=== PATIENT | male | born 1985 | race Caucasian/White ===

== ENCOUNTER → 2016-08-16 | Outpatient (CLI) | payer OTHER ==
--- NOTE | 2016-08-16 10:26 | XR ---
EXAM TYPE: LUMBAR SPINE X RAY SERIES COMPARISON: NONE HISTORY: Low back pain TECHNIQUE: 3 views are submitted. FINDINGS: Alignment is anatomic. The pedicles are intact. The transverse processes are intact. There is no s pondylolysis or spondylolisthesis. There is narrowing of the disc space at L4-5 with vacuum disc and hypertrophic spur formation. IMPRESSION: 1. Severe degenerative disc disease L4-L5 with vacuum disc. Recommend follow-up MRI.
== END ==
LOC: RADXRMAIN 10:06
PROVIDERS: ATTEND Family Medicine
DX: M51.36 Other intervertebral disc degeneration, lumbar region (principal)
CPT/HCPCS: 72100

== ENCOUNTER → 2016-12-05 | Outpatient (CLI) | payer OTHER ==
--- NOTE | 2016-12-05 23:19 | MR ---
EXAMINATION TYPE: MR lumbar spine wo con DATE OF EXAM: 12/05/2016 COMPARISON: Lumbar spine x-ray August 16, 2016. HISTORY: Low back pain per order. Numbing and stabbing pain in lower back and left leg x2-3 years per patient. TECHNIQUE: Multiplanar, multisequence imaging of the lumbar spine is performed without IV contrast. FINDINGS: Sagittal images of the lumbar spine show vertebral body heights and alignment to appear sat isfactory. There is disc desiccation with moderate to advanced disc space narrowing, mild anterior sp urring, and vacuum disc phenomenon with increased T1 and T2 signal consistent with Modic type II dege nerative change L4-L5 level. There is disc desiccation with mild disc space narrowing L5-S1 level. R emainder discs demonstrate normal heights and hydration. The conus medullaris is normal in position a nd signal ending at superior L1 level. Axial images show the T12-L1, L1-L2, L2-L3, and L3-L4 levels all to appear within normal limits. Axial images at the L4-L5 level shows disc herniation central on axial image 8 with broad-based left paracentral component inferior to this on axial image 7. There is effacement of the anterior thecal s ac and left lateral recess, but bilateral neural foramina remain patent. There is inferior extrusion component with increased signal posteriorly consistent with annular tear noted on sagittal image 7. S ome mass effect on central left L5 nerve likely is present on axial image 6. Axial images at L5-S1 level show mild facet arthropathy. There is central disc protrusion seen but sp inal canal is preserved. Right-sided neural foramen is patent. There is more eccentric left foraminal disc protrusion seen on sagittal image 3 effacing left L5 nerve. IMPRESSION: Degenerative changes L4-L5 and L5-S1 level as detailed above with inferior disc extrusion L4-L5 level encroaching upon central left L5 nerve and foraminal disc herniation L5-S1 level encroac nikolay on exiting left L5 nerve.
== END | disposition home or self-care (01) ==
LOC: RADMRIMAIN 18:01
PROVIDERS: ATTEND Family Medicine
DX: M51.27 Other intervertebral disc displacement, lumbosacral region (principal); M47.817 Spondylosis without myelopathy or radiculopathy, lumbosacral region
CPT/HCPCS: 72148

== ENCOUNTER 2017-10-24 19:12 | Emergency (ER) | payer OTHER ==
--- NOTE | 2017-10-24 20:21 | ED ---
Skin/Abscess/FB HPI - General Chief complaint: Skin/Abscess/Foreign Body Stated complaint: rash on feet Time Seen by Provider: 10/24/17 20:01 Source: patient, RN notes reviewed Mode of arrival: ambulatory Limitations: no limitations - History of Present Illness Initial comments: This is a 32-year-old male who presents to the emergency department with chief complaint of rash on feet. 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 He states he has to wear full body suit and boots. He states that for the past year he has been having intermittent rashes on bilateral feet. He states that they start as a mild rash and then he develops cracking in his feet. He states that his rash has increased in severity over the past 2 weeks. He states that today he got up to walk and felt his skin crack. He presents to the emergency department requesting a referral to dermatology. He does state that his boss has the same condition and is treated by a access control specialist. Denies recent fevers or chills, chest pain or abdominal pain, shortness of breath, nausea or vomiting, dizziness or headache. - Related Data Home Medications Medication Instructions Recorded Confirmed Fluticasone Nasal [place] [Flonase 1 spray EA NOSTRIL DAILY PRN 01/14/16 01/14/16 Nasal [place]] Loratadine [Claritin] 10 mg PO DAILY PRN 01/14/16 01/14/16 Previous Rx's Medication Instructions Recorded Diazepam [Valium] 5 mg PO TID PRN #15 tab 01/14/16 Naproxen [Naprosyn] 500 mg PO Q12HR #30 tab 01/14/16 Clotrimazole Cream [Lotrimin Cream] 1 applic TOPICAL BID #1 tube 10/24/17 Mupirocin 2% Oint [Bactroban 2% 1 applic TOPICAL TID #1 tube 10/24/17 Oint] Allergies Allergy/AdvReac Type Severity Reaction Status Date / Time propoxyphene napsylate Allergy Confusion Verified 10/24/17 19:25 [From [facility]iel] Review of Systems ROS Statement: Those systems with pertinent positive or pertinent negative responses have been documented in the HPI. ROS Other: All systems not noted in ROS Statement are negative. Past Medical History Past Medical History: Asthma Additional Past Medical History / Comment(s): sinus problems History of Any Multi-Drug Resistant Organisms: None Reported Past Surgical History: Orthopedic Surgery Additional Past Surgical History / Comment(s): oral surgery Past Psychological History: Anxiety, PTSD Smoking Status: Current every day smoker Past Alcohol Use History: Occasional Past Drug Use History: None Reported General Exam - General Exam Comments Initial Comments: General: Awake and alert, well-developed; in no apparent distress. HEENT: Head atraumatic, normocephalic. Pupils are equal, round and reactive to light. Extraocular movements intact. Oropharynx moist without erythema or exudate. Neck: Supple. Normal ROM. Cardiovascular: Regular rate and rhythm. No murmurs, rubs or gallops. Chest symmetrical. Pedal pulses are 2+ equal and palpable bilaterally. Respiratory: Lungs clear to auscultation bilaterally. No wheezes, rales or rhonchi. Normal respiratory effort with no use of accessory muscles. Musculoskeletal: Normal ROM, no tenderness bilateral upper and lower extremities. Ambulating normally. Skin: [place], warm and dry. Bilateral dorsal feet have a coalesced erythematous rash with overlying emaciation/cracking and yellow crusting. Neurological: Alert and oriented x3. CN II-XII grossly intact. Speech is fluent and answers are appropriate. No focal neuro deficits. Psychiatric: Normal mood and affect. No overt signs of depression or anxiety noted. Limitations: no limitations Course Vital Signs 10/24/17 19:21 Temperature 98.6 F Pulse Rate 91 Respiratory 16 Rate Blood Pressure 132/77 O2 Sat by Pulse 96 Oximetry Medical Decision Making - Medical Decision Making This is a 32-year-old male who presents to the emergency department with chief complaint of bilateral foot rash. This rash has been present intermittently for the past one year. Patient works in a very hot environment with molten metal. On physical examination, rash appears to be fungal in nature with an overlying bacterial superinfection. Patient will be started on mupirocin ointment and Lotrimin cream. Directions for use were discussed with patient. He will be provided with contact information for dermatology. Vital signs are stable and patient is in no acute distress. He'll be discharged at this time. This case was discussed with attending physician, Dr. Ruano, who also evaluated the patient. Patient is in agreement with plan and voices understanding. All questions were answered. Disposition Clinical Impression: Fungal skin infection Disposition: HOME SELF-CARE Condition: Good Instructions: Impetigo (ED), Tinea Corporis (ED) Additional Instructions: Please apply the antifungal cream to the surrounding rash and the antibacterial ointment to the cracked areas. Please follow-up with Dr. Burgess. Please follow up with primary care provider within 1-2 days. Return to emergency department if symptoms should worsen or any concerns arise. Prescriptions: Clotrimazole Cream [Lotrimin Cream] 1 applic TOPICAL BID #1 tube Mupirocin 2% Oint [Bactroban 2% Oint] 1 applic TOPICAL TID #1 tube Is patient prescribed a controlled substance at d/c from ED?: No Referrals: Buck Lopez DO [Primary Care Provider] - 1-2 days Margarette Burgess MD [STAFF PHYSICIAN] - 1-2 days Hill Burgess MD [STAFF PHYSICIAN] - 1-2 days Time of Disposition: 20:19
[2017-10-24 20:28] VITALS: BP 144/75; PULSE 78; RESP 18; TEMP 98.8
== END 2017-10-24 20:28 | disposition home or self-care (01) ==
LOC: EC 19:12
DX: B37.2 Candidiasis of skin and nail (principal); J45.909 Unspecified asthma, uncomplicated; F17.200 Nicotine dependence, unspecified, uncomplicated; Z88.5 Allergy status to narcotic agent
CPT/HCPCS: 99282

== ENCOUNTER 2018-02-13 19:36 | Emergency (ER) | payer OTHER ==
[2018-02-13] MEDS ORDERED: KETOROLAC 30 MG/ML 1 ML VIAL IVP STA (20:11)
[2018-02-13] MEDS ORDERED: SODIUM CHLORIDE 0.9% 1,000 ML IV STA (20:11)
[2018-02-13] MEDS ORDERED: METOCLOPRAMIDE 5 MG/ML 2 ML VIAL IVP STA (20:12)
[2018-02-13] MEDS ORDERED: diphenhydrAMINE 50 MG/ML 1 ML VIAL IVP STA (20:12)
--- NOTE | 2018-02-13 20:14 | ED ---
General Adult HPI - General Chief complaint: Headache Stated complaint: Vomiting Source: patient Mode of arrival: ambulatory Limitations: no limitations - History of Present Illness Initial comments: Dictation was produced using Bizo dictation software. please excuse any grammatical, word or spelling errors. Chief Complaint: 32-year-old male without any past medical history presents with headache. History of Present Illness: Patient states his headache began yesterday. He does complain of some neck stiffness to his bilateral trapezius. He has been under a lot of stress today because of recent divorce and that'll with his custody of his children. Patient states he was at work when the symptoms started. Denies any past medical history of headaches. He states pain is mild. Denies any ataxia or neurologic deficits. No numbness to paresthesias or weakness to any part of the body. No vision changes. The ROS documented in this emergency department record has been reviewed and confirmed by me. Those systems with pertinent positive or negative responses have been documented in the HPI. All other systems are other negative and/or noncontributory. - Related Data Previous Rx's Medication Instructions Recorded Naproxen [Naprosyn] 500 mg PO Q12HR PRN #12 tab 02/13/18 Allergies Allergy/AdvReac Type Severity Reaction Status Date / Time propoxyphene napsylate Allergy Confusion Verified 02/13/18 19:43 [From Maciel] Review of Systems ROS Statement: Those systems with pertinent positive or pertinent negative responses have been documented in the HPI. ROS Other: All systems not noted in ROS Statement are negative. Past Medical History Past Medical History: Asthma Additional Past Medical History / Comment(s): sinus problems History of Any Multi-Drug Resistant Organisms: None Reported Past Surgical History: Orthopedic Surgery Additional Past Surgical History / Comment(s): oral surgery Past Psychological History: Anxiety, PTSD Smoking Status: Current every day smoker Past Alcohol Use History: Occasional Past Drug Use History: None Reported General Exam - General Exam Comments Initial Comments: PHYSICAL EXAM: General Impression: Alert and oriented x3, not in acute distress HEENT: Normocephalic atraumatic, extra-ocular movements intact, pupils equal and reactive to light bilaterally, mucous membranes moist. Cardiovascular: Heart regular rate and rhythm, S1&S2 audible, no murmurs, rubs or gallops Chest: Lungs clear to auscultation bilaterally, no rhonchi, no wheeze, no rales Abdomen: Bowel sounds present, abdomen soft, non-tender, non-distended, no organomegaly Musculoskeletal: Pulses present and equal in all extremities, no peripheral edema Motor: Power 5/5 bilaterally, no focal deficits noted Neurological: CN II-XII grossly intact, no focal motor or sensory deficits noted Skin: Intact with no visualized rashes Psych: Normal affect and mood Limitations: no limitations Course Vital Signs 02/13/18 02/13/18 19:41 20:56 Temperature 98.3 F Pulse Rate 90 75 Respiratory 20 18 Rate Blood Pressure 123/81 117/61 O2 Sat by Pulse 99 97 Oximetry Medical Decision Making - Medical Decision Making ED course: 32-year-old male with clinical presentation consistent with tension headache. Vital signs upon arrival are within acceptable limits. Patient treated with headache cocktail. No neuro deficits noted on physical examination. Patient given headache cocktail and reevaluated. Patient states that his symptoms are much improved. He is told to follow-up with his primary care physician upon discharge. Discussed with patient that his symptoms likely reflect tension headache. No indication for CT imaging or extensive laboratory evaluation at this time. Disposition Clinical Impression: Headache Disposition: HOME SELF-CARE Condition: Good Instructions: Acute Headache (ED) Prescriptions: Naproxen [Naprosyn] 500 mg PO Q12HR PRN #12 tab PRN Reason: Pain Is patient prescribed a controlled substance at d/c from ED?: No Referrals: Buck Lopez DO [Primary Care Provider] - 1-2 days Time of Disposition: 21:06
[2018-02-13 20:58] VITALS: RESP 18
[2018-02-13 22:08] VITALS: BP 101/61; PULSE 78; TEMP 98.2
== END 2018-02-13 22:08 | disposition home or self-care (01) ==
LOC: EC 19:36
DX: G44.209 Tension-type headache, unspecified, not intractable (principal); R11.10 Vomiting, unspecified; F17.200 Nicotine dependence, unspecified, uncomplicated; Z88.6 Allergy status to analgesic agent
CPT/HCPCS: 99283; 96374; 96375 ×2; 96361; J1200; J2765; J1885

== ENCOUNTER 2018-04-01 19:58 | Emergency (ER) | payer OTHER ==
[2018-04-01] MEDS ORDERED: IPRATROPIUM-ALBUTEROL 3 ML NEB INHALATION STA (20:21)
[2018-04-01] MEDS ORDERED: FAMOTIDINE 20 MG/2 ML VIAL IV STA (20:21)
[2018-04-01] MEDS ORDERED: SODIUM CHLORIDE 0.9% 500 ML 500 ML IV STA (20:21)
--- NOTE | 2018-04-01 20:31 | ED ---
Chest Pain HPI - General Chief Complaint: Chest Pain Stated Complaint: chest & lung pain Time Seen by Provider: 04/01/18 20:13 Source: patient Mode of arrival: ambulatory Limitations: no limitations - History of Present Illness Initial Comments: 32-year-old male patient presented to the emergency department today for evaluation of intermittent chest pain over the course the day today. Patient describes as a burning chest pain starts in the middle and radiates outward to the left and right. Patient states this started earlier after taking a drink of pop. States he does feel short of breath with this. He denies any sweats, nausea, or vomiting. Patient denies any history of similar symptoms. Patient states he has been coughing denies any sputum production. Denies any fevers or chills with this. Denies any history of acid reflux. Denies any recent travel , leg pain, or leg swelling. Patient denies any recent rash, abdominal pain, diarrhea, constipation, back pain, numbness, tingling, dizziness, weakness, hematuria, dysuria, urinary urgency, urinary frequency, headache, visual changes , or any other complaints. - Related Data Previous Rx's Medication Instructions Recorded Albuterol Sulfate [Proair Hfa] 1 - 2 puff INHALATION Q6HR PRN #1 04/01/18 inhaler Famotidine [Pepcid] 20 mg PO DAILY #20 tablet 04/01/18 Allergies Allergy/AdvReac Type Severity Reaction Status Date / Time propoxyphene napsylate Allergy Confusion Verified 04/01/18 21:14 [From Maciel] Review of Systems ROS Statement: Those systems with pertinent positive or pertinent negative responses have been documented in the HPI. ROS Other: All systems not noted in ROS Statement are negative. EKG Findings - EKG Comments: EKG Findings:: EKG obtained at 2010 shows normal sinus rhythm with sinus arrhythmia. Ventricular rate is 72, VA interval 160, QRS duration 98, QT 374, QTC 409. No evidence of ST elevation or depression. Past Medical History Past Medical History: Asthma Additional Past Medical History / Comment(s): sinus problems History of Any Multi-Drug Resistant Organisms: None Reported Past Surgical History: Orthopedic Surgery Additional Past Surgical History / Comment(s): oral surgery Past Psychological History: Anxiety, PTSD Smoking Status: Current every day smoker Past Alcohol Use History: Occasional Past Drug Use History: None Reported General Exam Limitations: no limitations General appearance: alert, in no apparent distress, other (This is a well- developed, well-nourished adult male patient in no acute distress. Vital signs upon presentation are temperature 98.5F, pulse 77, respirations 18, blood pressure 128/77, pulse ox 99% on room air.) Eye exam: Present: normal appearance, PERRL, EOMI. Absent: scleral icterus, conjunctival injection, periorbital swelling ENT exam: Present: normal exam, normal oropharynx, mucous membranes moist Respiratory exam: Present: wheezes (Scattered expiratory wheezes throughout all posterior lung boone). Absent: normal lung sounds bilaterally, respiratory distress, rales, rhonchi, stridor Cardiovascular Exam: Present: regular rate, normal rhythm, normal heart sounds. Absent: systolic murmur, diastolic murmur, rubs, gallop, clicks GI/Abdominal exam: Present: soft, normal bowel sounds. Absent: distended, tenderness, guarding, rebound, rigid Neurological exam: Present: alert, oriented X3, CN II-XII intact Psychiatric exam: Present: normal affect, normal mood Skin exam: Present: warm, dry, intact, normal color. Absent: rash Course Vital Signs 04/01/18 04/01/18 04/01/18 20:02 21:01 22:06 Temperature 98.5 F Pulse Rate 77 69 58 L Respiratory 18 18 Rate Blood Pressure 128/77 124/77 O2 Sat by Pulse 99 97 Oximetry 04/01/18 22:15 Temperature Pulse Rate 62 Respiratory Rate Blood Pressure O2 Sat by Pulse Oximetry Chest Pain MDM - [facility] RADIOLOGY:Two-view x-ray of the chest is obtained. Report was reviewed in its entirety. Impression by Dr. Lujan shows no acute process. MDM: 32-year-old male patient presented to the emergency department today for evaluation of intermittent burning chest pain after taking a large drink a pop earlier today. Patient also reported some shortness of breath and dizziness with this. Physical examination was relatively unremarkable. Labs reviewed and were unremarkable. Troponin negative. EKG showed normal sinus rhythm. Did discuss findings and results with the patient. We did discuss that this could be related to the esophageal spasm however patient does have wheezing throughout his posterior lung boone. Patient is a smoker. Did discuss risk of developing COPD. He'll be given a Pro Air inhaler. He is instructed to follow-up with his primary care physician for recheck in 1-2 days. Return parameters discussed in detail. They verbalize understanding and agree with this plan. Disposition Clinical Impression: Chest pain, Wheezing Disposition: HOME SELF-CARE Condition: Good Instructions: Chest Pain (ED), Wheezing (ED) Additional Instructions: Take medications as directed. Follow-up with your primary care physician for recheck in 1-2 days. Return here immediately for any new, worsening, or concerning symptoms. Prescriptions: Albuterol Sulfate [Proair Hfa] 1 - 2 puff INHALATION Q6HR PRN #1 inhaler PRN Reason: Shortness Of Breath Famotidine [Pepcid] 20 mg PO DAILY #20 tablet Is patient prescribed a controlled substance at d/c from ED?: No Referrals: Buck Lopez DO [Primary Care Provider] - 1-2 days Time of Disposition: 22:39
[2018-04-01 20:37] LABS: Basophils % (A) 1 %; Eosinophils # (A) 0.3 k/uL (0-0.7); Eosinophils % (A) 4 %; HCT 43.3 % (39.0-53.0); HGB 15.1 gm/dL (13.0-17.5); Lymphocytes # (A) 2.1 k/uL (1.0-4.8); Lymphocytes % (A) 36 %; MCHC 34.9 g/dL (31.0-37.0); MCV 88.7 fL (80.0-100.0); Mean Platelet Volume 7.7; Monocytes # (A) 0.5 k/uL (0-1.0); Monocytes % (A) 8 %; Neutrophils # (A) 2.9 k/uL (1.3-7.7); Neutrophils % (A) 49 %; Platelet Count 176 k/uL (150-450); RBC 4.88 m/uL (4.30-5.90); WBC 5.9 k/uL (3.8-10.6)
[2018-04-01 20:50] LABS: Creatine Kinase 141 U/L (55-170)
[2018-04-01 20:53] LABS: ALT 24 U/L (21-72); AST 31 U/L (17-59); Albumin 3.9 g/dL (3.5-5.0); Alkaline Phosphatase 41 U/L (38-126); Anion Gap 9 mmol/L; Blood Urea Nitrogen 12 mg/dL (9-20); Calcium 9.3 mg/dL (8.4-10.2); Carbon Dioxide 22 mmol/L (22-30); Chloride 108 mmol/L (98-107); Glucose 103 mg/dL (74-99); Magnesium 1.9 mg/dL (1.6-2.3); Potassium 4.1 mmol/L (3.5-5.1); Sodium 139 mmol/L (137-145); Total Bilirubin 0.9 mg/dL (0.2-1.3); Total Protein 7.1 g/dL (6.3-8.2)
[2018-04-01 21:03] LABS: Creatine Kinase MB 0.6 ng/mL (0.0-2.4); Troponin I <0.012 ng/mL (0.000-0.034)
[2018-04-01 21:14] LABS: INR 1.1 (<1.2); Partial Thromboplastin Time 23.8 sec (22.0-30.0); Prothrombin Time 10.4 sec (9.0-12.0)
--- NOTE | 2018-04-01 21:56 | XR ---
EXAMINATION: XR chest 2V DATE AND TIME: 04/01/2018 9:44 PM CLINICAL INDICATION: Chest Pain TECHNIQUE: PA and lateral COMPARISON: 01/05/2016 FINDINGS: The lungs are clear. The pleural spaces are negative. The cardiac silhouette is not enlarged. The remainder of the mediastinal silhouette is unremarkable. The skeletal structures and soft tissues are negative for acute findings. IMPRESSION: NO ACUTE PROCESS.
[2018-04-01 22:56] VITALS: BP 113/63; PULSE 57; RESP 18; TEMP 99
== END 2018-04-01 22:49 | disposition home or self-care (01) ==
LOC: EC 19:58
DX: R07.9 Chest pain, unspecified (principal); R06.2 Wheezing; R06.02 Shortness of breath; R42 Dizziness and giddiness; R05 Cough; F17.200 Nicotine dependence, unspecified, uncomplicated; Z88.5 Allergy status to narcotic agent
CPT/HCPCS: 36415; 71046; 80053; 82550; 82553; 83735; 84484; 85025; 85610; 85730; 93005; 94640; 96361; 96374; 99285

== ENCOUNTER → 2018-05-24 | Outpatient (CLI) | payer OTHER ==
--- NOTE | 2018-05-24 16:46 | XR ---
EXAMINATION TYPE: XR lumbar spine 2 or 3V DATE OF EXAM: 05/24/2018 COMPARISON: 08/16/2016 HISTORY: Back pain TECHNIQUE: 3 views FINDINGS: The lumbar vertebra have normal alignment. There is degenerative disc space narrowing at L4 -5 with spur formation. Posterior elements are intact. Sacroiliac joints appear normal. IMPRESSION: Spondylotic changes at L4-5. No fracture. There is slight progression of disc space narro wing compared to old exam.
--- NOTE | 2018-05-24 16:48 | XR ---
EXAMINATION TYPE: XR thoracic spine complete DATE OF EXAM: 05/24/2018 COMPARISON: 01/14/2016 HISTORY: Back pain TECHNIQUE: 3 views FINDINGS: Vertebra have fairly normal spacing. Posterior elements are intact. There is no compression fracture. There is no paraspinal mass. Posterior elements appear intact. IMPRESSION: Negative thoracic spine exam. No change.
== END | disposition home or self-care (01) ==
LOC: RADXRMAIN 16:22
PROVIDERS: ATTEND Emergency Medicine
DX: M48.061 Spinal stenosis, lumbar region without neurogenic claudication (principal); M47.816 Spondylosis without myelopathy or radiculopathy, lumbar region; S33.5XXA Sprain of ligaments of lumbar spine, initial encounter; S23.3XXA Sprain of ligaments of thoracic spine, initial encounter
CPT/HCPCS: 72072; 72100

== ENCOUNTER → 2018-06-06 | Outpatient (CLI) | payer OTHER ==
--- NOTE | 2018-06-06 14:44 | MR ---
EXAMINATION TYPE: MR lumbar spine wo con DATE OF EXAM: 06/06/2018 COMPARISON: MRI lumbar spine December 05, 2016. Lumbar spine x-ray May 24, 2018 HISTORY: Sprain of ligaments of lumbar spine TECHNIQUE: Multiplanar, multisequence imaging of the lumbar spine is performed without IV contrast. FINDINGS: Sagittal images of the lumbar spine show vertebral body heights to remain satisfactory. Lum bar spine is slightly more straightened on current study. There is disc desiccation with moderate to advanced disc space narrowing, mild anterior spurring, and vacuum disc phenomenon with Modic type II degenerative change L4-L5 level redemonstrated. There is disc desiccation with mild to moderate disc space narrowing L5-S1 level redemonstrated. Remainder discs demonstrate normal heights and hydration. Posterior disc herniations are redemonstrated L4-L5 and L5-S1 levels on sagittal images The conus me dullaris remains normal in position and signal ending at T12-L1 disc space level. Axial images show the T12-L1, L1-L2, L2-L3, and L3-L4 levels all to remain within normal limits. Axial images at the L4-L5 level shows moderate to severe disc bulge with left paracentral disc protru vishal component effacing anterior thecal sac on axial image 7 and causing mild right greater than left bilateral inferior neural foraminal narrowing. No significant change from prior. There is inferior e xtrusion component redemonstrated encroaching near central left L5 nerve similar to prior axial image 6. Axial images at L5-S1 level show mild facet arthropathy bilaterally. There is central disc protrusion seen but spinal canal is preserved. Right-sided neural foramen is patent. There is more eccentric le ft foraminal disc protrusion seen on sagittal image 3 and axial image 3 effacing left L5 nerve simila r to prior. Paraspinal muscle bulk is maintained. IMPRESSION: Redemonstration of degenerative changes L4-L5 and L5-S1 level as detailed above with encr oachment left L5 nerve was again suspected at both levels. No significant change or progression from prior study.
== END ==
LOC: RADMRIMAIN 13:09
PROVIDERS: ATTEND Emergency Medicine
DX: M48.061 Spinal stenosis, lumbar region without neurogenic claudication (principal); M51.27 Other intervertebral disc displacement, lumbosacral region; M47.816 Spondylosis without myelopathy or radiculopathy, lumbar region; M46.97 Unspecified inflammatory spondylopathy, lumbosacral region
CPT/HCPCS: 72148

== ENCOUNTER → 2020-09-10 | Outpatient (CLI) | payer OTHER | END | disposition home or self-care (01) | LOC: LABWHC1 17:07 | PROVIDERS: ATTEND Family Medicine | DX: J02.9 Acute pharyngitis, unspecified (principal); R06.02 Shortness of breath; R53.83 Other fatigue; R05 Cough; R09.81 Nasal congestion; Z20.822 Contact with and (suspected) exposure to COVID-19 | CPT/HCPCS: U0003; C9803 ==

== ENCOUNTER → 2020-11-02 | Outpatient (CLI) | payer OTHER | END | disposition home or self-care (01) | LOC: LABWHC1 08:48 | PROVIDERS: ATTEND Nurse Practitioner | DX: U07.1 COVID-19 (principal) | CPT/HCPCS: U0003; C9803; U0005 ==

== ENCOUNTER 2021-02-01 17:28 | Emergency (ER) | payer OTHER ==
[2021-02-01 18:37] VITALS: RESP 18; TEMP 98.6
--- NOTE | 2021-02-01 18:39 | ED ---
General Adult HPI <Bárbara Domínguez - Last Filed: 02/01/21 18:33> <Edgar Fang - Last Filed: 02/01/21 22:11> - General Chief complaint: Abdominal Pain Stated complaint: Abdominal Pain/Abnormal Stool Time Seen by Provider: 02/01/21 18:33 - History of Present Illness Initial comments: Patient is a 35-year-old male presenting to the emergency Department with complaints of right-sided abdominal pain has been increasing over the past 1-2 weeks. He states over the past 3 weeks has been having some generalized discomfort, changes in his stool pattern. He states he's been having hernandez- colored stool which has been very thin and narrow, it is soft. States the pain is mostly in his right-sided abdomen, upper abdomen. He states the pain over the past few days has been increasing, on his way home from work today, he states he was doubled over, 1010 pain. He denies any radiation towards the back. Denies any chest pain or shortness of breath. He denies any fevers. He states he is an occasional drinker, he does admit to vape and marijuana use. He denies any abdominal surgeries. He has been having some intermittent nausea as well, no vomiting. No dysuria. He has no further complaints at this time. (Bárbara Domínguez) - Related Data Home Medications Medication Instructions Recorded Confirmed Ergocalciferol [Vitamin D2 (1250 1,250 mcg PO Q28D 02/01/21 02/01/21 Mcg = 43833 Iu)] Ibuprofen [Motrin] 800 mg PO DAILY PRN 02/01/21 02/01/21 Allergies Allergy/AdvReac Type Severity Reaction Status Date / Time propoxyphene napsylate Allergy Confusion Verified 02/01/21 21:14 [From Maciel] Review of Systems ROS Other: All systems not noted in ROS Statement are negative. <Bárbara Domínguez - Last Filed: 02/01/21 18:33> ROS Other: All systems not noted in ROS Statement are negative. <Edgar Fang - Last Filed: 02/01/21 22:11> ROS Statement: Those systems with pertinent positive or pertinent negative responses have been documented in the HPI. Past Medical History Past Medical History: Asthma Additional Past Medical History / Comment(s): sinus problems History of Any Multi-Drug Resistant Organisms: None Reported Past Surgical History: Orthopedic Surgery Additional Past Surgical History / Comment(s): oral surgery Past Psychological History: Anxiety, PTSD Past Alcohol Use History: Occasional Past Drug Use History: None Reported <Bárbara Domínguez - Last Filed: 02/01/21 18:33> General Exam Limitations: no limitations, language barrier General appearance: alert, in no apparent distress Head exam: Present: atraumatic, normocephalic <Bárbara Domínguez - Last Filed: 02/01/21 18:33> Limitations: no limitations General appearance: alert, in no apparent distress Head exam: Present: atraumatic, normocephalic Eye exam: Present: normal appearance Pupils: Present: normal accommodation ENT exam: Present: normal exam, normal oropharynx, mucous membranes moist Neck exam: Present: normal inspection, full ROM. Absent: tenderness, lymphadeno josi Respiratory exam: Present: normal lung sounds bilaterally. Absent: respiratory distress, wheezes, rales, rhonchi, stridor Cardiovascular Exam: Present: regular rate, normal rhythm, normal heart sounds. Absent: systolic murmur GI/Abdominal exam: Present: soft, tenderness (Right-sided abdominal tenderness). Absent: distended, guarding, rebound, rigid Extremities exam: Present: normal inspection, full ROM, normal capillary refill. Absent: tenderness, pedal edema, joint swelling Back exam: Present: normal inspection, full ROM. Absent: tenderness Neurological exam: Present: alert, oriented X3 Psychiatric exam: Present: normal affect, normal mood Skin exam: Present: warm, dry, intact, normal color <Edgar Fang - Last Filed: 02/01/21 22:11> Course Vital Signs 02/01/21 18:33 Temperature 98.6 F Pulse Rate 67 Respiratory 18 Rate Blood Pressure 129/87 O2 Sat by Pulse 100 Oximetry Medical Decision Making - Lab Data Result diagrams: 02/01/21 18:40 02/01/21 18:40 <Edgar Fang - Last Filed: 02/01/21 22:11> - Medical Decision Making 35-year-old male presents emergency father chief complaint of abdominal pain. I personally evaluated the patient and he did have some right-sided abdominal tenderness. Negative McBurney point centers. Negative Maynard sign. No CVA tenderness. He did not appear to be significant discomfort. He was playing on his phone when upright for his evaluation. Laboratory work is unremarkable. Considering his weight loss, there is a concern for possible neoplastic disease. For this reason, CT was obtained which showed no acute findings of the abdomen and pelvis. Patient was advised to follow with primary care physician and a GI specialist. Strict return parameters were thoroughly discussed the patient is standing and agreeable. Case discussed with Dr. Villanueva. (Edgar Fang) - Lab Data Lab Results 02/01/21 02/01/21 02/01/21 Range/Units 18:40 18:40 18:40 WBC 7.2 (3.8-10.6) k/uL RBC 4.75 (4.30-5.90) m/uL Hgb 15.0 (13.0-17.5) gm/dL Hct 42.8 (39.0-53.0) % MCV 90.2 (80.0-100.0) fL MCH 31.5 (25.0-35.0) pg MCHC 35.0 (31.0-37.0) g/dL RDW 13.6 (11.5-15.5) % Plt Count 222 (150-450) k/uL MPV 8.3 Neutrophils % 62 % Lymphocytes % 29 % Monocytes % 5 % Eosinophils % 3 % Basophils % 0 % Neutrophils # 4.5 (1.3-7.7) k/uL Lymphocytes # 2.1 (1.0-4.8) k/uL Monocytes # 0.3 (0-1.0) k/uL Eosinophils # 0.2 (0-0.7) k/uL Basophils # 0.0 (0-0.2) k/uL PT 10.6 (9.0-12.0) sec INR 1.0 (<1.2) APTT 24.0 (22.0-30.0) sec Sodium (137-145) mmol/L Potassium (3.5-5.1) mmol/L Chloride (98-107) mmol/L Carbon Dioxide (22-30) mmol/L Anion Gap mmol/L BUN (9-20) mg/dL Creatinine (0.66-1.25) mg/dL Est GFR (CKD-EPI)AfAm (>60 ml/min/1.73 sqM) Est GFR (CKD-EPI)NonAf (>60 ml/min/1.73 sqM) Glucose (74-99) mg/dL Plasma Lactic Acid Сергей (0.7-2.0) mmol/L Calcium (8.4-10.2) mg/dL Total Bilirubin (0.2-1.3) mg/dL AST (17-59) U/L ALT (4-49) U/L Alkaline Phosphatase (38-126) U/L Total Protein (6.3-8.2) g/dL Albumin (3.5-5.0) g/dL Amylase (30-110) U/L Lipase (23-300) U/L Urine Color Yellow Urine Appearance Clear (Clear) Urine pH 7.0 (5.0-8.0) Ur Specific Edison 1.023 (1.001-1.035) Urine Protein Negative (Negative) Urine Glucose (UA) Negative (Negative) Urine Ketones Negative (Negative) Urine Blood Negative (Negative) Urine Nitrite Negative (Negative) Urine Bilirubin Negative (Negative) Urine Urobilinogen <2.0 (<2.0) mg/dL Ur Leukocyte Esterase Negative (Negative) 02/01/21 02/01/21 Range/Units 18:40 18:40 WBC (3.8-10.6) k/uL RBC (4.30-5.90) m/uL Hgb (13.0-17.5) gm/dL Hct (39.0-53.0) % MCV (80.0-100.0) fL MCH (25.0-35.0) pg MCHC (31.0-37.0) g/dL RDW (11.5-15.5) % Plt Count (150-450) k/uL MPV Neutrophils % % Lymphocytes % % Monocytes % % Eosinophils % % Basophils % % Neutrophils # (1.3-7.7) k/uL Lymphocytes # (1.0-4.8) k/uL Monocytes # (0-1.0) k/uL Eosinophils # (0-0.7) k/uL Basophils # (0-0.2) k/uL PT (9.0-12.0) sec INR (<1.2) APTT (22.0-30.0) sec Sodium 139 (137-145) mmol/L Potassium 4.1 (3.5-5.1) mmol/L Chloride 104 (98-107) mmol/L Carbon Dioxide 25 (22-30) mmol/L Anion Gap 10 mmol/L BUN 16 (9-20) mg/dL Creatinine 0.88 (0.66-1.25) mg/dL Est GFR (CKD-EPI)AfAm >90 (>60 ml/min/1.73 sqM) Est GFR (CKD-EPI)NonAf >90 (>60 ml/min/1.73 sqM) Glucose 96 (74-99) mg/dL Plasma Lactic Acid Сергей 0.6 L (0.7-2.0) mmol/L Calcium 9.9 (8.4-10.2) mg/dL Total Bilirubin 0.7 (0.2-1.3) mg/dL AST 25 (17-59) U/L ALT 17 (4-49) U/L Alkaline Phosphatase 43 (38-126) U/L Total Protein 7.4 (6.3-8.2) g/dL Albumin 4.8 (3.5-5.0) g/dL Amylase 58 (30-110) U/L Lipase 141 (23-300) U/L Urine Color Urine Appearance (Clear) Urine pH (5.0-8.0) Ur Specific Edison (1.001-1.035) Urine Protein (Negative) Urine Glucose (UA) (Negative) Urine Ketones (Negative) Urine Blood (Negative) Urine Nitrite (Negative) Urine Bilirubin (Negative) Urine Urobilinogen (<2.0) mg/dL Ur Leukocyte Esterase (Negative) Disposition <Bárbara Domínguez - Last Filed: 02/01/21 18:33> Is patient prescribed a controlled substance at d/c from ED?: No Time of Disposition: 22:11 <Edgar Fang - Last Filed: 02/01/21 22:11> Clinical Impression: Abdominal pain Disposition: HOME SELF-CARE Condition: Stable Instructions (If sedation given, give patient instructions): Abdominal Pain (E D) Additional Instructions: Follow-up with a GI specialist. Return to emergency department if symptoms worsen. Referrals: Vijay Maldonado MD [Primary Care Provider] - 1-2 days
[2021-02-01 19:06] LABS: Basophils % (A) 0 %; Eosinophils # (A) 0.2 k/uL (0-0.7); Eosinophils % (A) 3 %; HCT 42.8 % (39.0-53.0); Lymphocytes # (A) 2.1 k/uL (1.0-4.8); Lymphocytes % (A) 29 %; MCH 31.5 pg (25.0-35.0); MCV 90.2 fL (80.0-100.0); Mean Platelet Volume 8.3; Monocytes # (A) 0.3 k/uL (0-1.0); Monocytes % (A) 5 %; Neutrophils # (A) 4.5 k/uL (1.3-7.7); Neutrophils % (A) 62 %; Platelet Count 222 k/uL (150-450); RBC 4.75 m/uL (4.30-5.90); RDW 13.6 % (11.5-15.5); WBC 7.2 k/uL (3.8-10.6)
[2021-02-01 19:10] LABS: ALT 17 U/L (4-49); AST 25 U/L (17-59); African American GFR (CKD) >90 (>60 ml/min/1.73 sqM); Albumin 4.8 g/dL (3.5-5.0); Alkaline Phosphatase 43 U/L (38-126); Amylase 58 U/L (30-110); Anion Gap 10 mmol/L; Blood Urea Nitrogen 16 mg/dL (9-20); Calcium 9.9 mg/dL (8.4-10.2); Carbon Dioxide 25 mmol/L (22-30); Chloride 104 mmol/L (98-107); Glucose 96 mg/dL (74-99); Lipase 141 U/L (23-300); Non-African American GFR(CKD) >90 (>60 ml/min/1.73 sqM); Potassium 4.1 mmol/L (3.5-5.1); Sodium 139 mmol/L (137-145); Total Bilirubin 0.7 mg/dL (0.2-1.3); Total Protein 7.4 g/dL (6.3-8.2)
[2021-02-01 19:23] LABS: Prothrombin Time 10.6 sec (9.0-12.0)
[2021-02-01 19:24] LABS: Appearance,Urine Clear (Clear); Bilirubin,Urine Negative (Negative); Blood,Urine Negative (Negative); Color,Urine Yellow; Glucose,Urine (UA) Negative (Negative); Ketones,Urine Negative (Negative); Leukocyte Esterase,Urine Negative (Negative); Nitrite,Urine Negative (Negative); Protein,Urine Negative (Negative); Specific Gravity,Urine 1.023 (1.001-1.035); Urobilinogen,Urine <2.0 mg/dL (<2.0)
--- NOTE | 2021-02-01 21:26 | CT ---
EXAMINATION TYPE: CT abdomen pelvis w con DATE OF EXAM: 02/01/2021 COMPARISON: None HISTORY: abdominal pain, weight loss, abnormal BMs CT DLP: 1085.6 mGycm Automated exposure control for dose reduction was used. CONTRAST: Performed with IV Contrast, patient injected with 100 mL of Isovue 300. Lung bases are clear. There is no pleural effusion. Heart size is normal. There is no pericardial eff usion. Liver spleen stomach pancreas gallbladder appear normal. The bile ducts are not dilated. There is no adrenal mass. Kidneys show satisfactory contrast opacification. There is no hydronephrosi s. Ureters are not dilated. Delayed images show normal renal excretion. There is no retroperitoneal a denopathy. Bladder distends smoothly. There is no inguinal hernia. There is no free fluid in the pelv is. There is no mesenteric edema. There is no ascites or free air. Appendix is lateral and appears normal . There is no sign of a bowel obstruction. Lumbar vertebra have normal alignment. There is narrowing at L4-5 disc space. There is vacuum disc at L4-5. There is no compression fracture. There is posterior endplate spur formation at L4-5. The bony pelvis is intact. The hip joints are intact. IMPRESSION: Normal appendix. No sign of acute abdomen and pelvis. 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
[2021-02-01 22:49] VITALS: BP 112/70; PULSE 60
== END 2021-02-01 22:49 | disposition home or self-care (01) ==
LOC: EC 17:28
DX: R10.11 Right upper quadrant pain (principal); J45.909 Unspecified asthma, uncomplicated; F41.9 Anxiety disorder, unspecified; F43.12 Post-traumatic stress disorder, chronic; R63.4 Abnormal weight loss; Z88.5 Allergy status to narcotic agent
CPT/HCPCS: 99284 ×2; 36415; 80053; 82150; 83605; 83690; 85025; 85610; 85730; 81003; 74177; Q9967

== ENCOUNTER 2021-02-11 09:44 | Emergency (ER) | payer OTHER ==
[2021-02-11 09:52] VITALS: RESP 18; TEMP 98
[2021-02-11] MEDS ORDERED: MECLIZINE 12.5 MG TAB PO STA (10:11)
--- NOTE | 2021-02-11 11:13 | ED ---
Dizziness HPI - General Chief Complaint: Dizziness Stated Complaint: loss of balance, shakiness Time Seen by Provider: 02/11/21 09:53 Source: patient Mode of arrival: ambulatory Limitations: no limitations - History of Present Illness Initial Comments: 35-year-old male presenting to the emergency department with a chief complaint of dizziness where the room was spinning around him since day. Patient reports it began gradually and seems to worse whenever he is laying down. However, he denies any associated lightheadedness or any syncopal episodes. Denies presence history of vertigo. He denies any visual changes, one-sided weakness or paresthesias. He does report a sensation of fullness in bilateral ears. He does have seasonal ALLERGIES. However, he denies any changes to his hearing, discharge from the ears, fevers, chills. - Related Data Home Medications Medication Instructions Recorded Confirmed Ergocalciferol [Vitamin D2 (1250 1,250 mcg PO Q30D 02/01/21 02/11/21 Mcg = 47804 Iu)] Ibuprofen [Motrin] 800 mg PO Q6H PRN 02/01/21 02/11/21 Allergies Allergy/AdvReac Type Severity Reaction Status Date / Time propoxyphene napsylate Allergy Confusion Verified 02/11/21 10:29 [From Maciel] Review of Systems ROS Statement: Those systems with pertinent positive or pertinent negative responses have been documented in the HPI. ROS Other: All systems not noted in ROS Statement are negative. Past Medical History Past Medical History: Asthma Additional Past Medical History / Comment(s): sinus problems History of Any Multi-Drug Resistant Organisms: None Reported Past Surgical History: Orthopedic Surgery Additional Past Surgical History / Comment(s): oral surgery Past Psychological History: Anxiety, PTSD Smoking Status: Vaper Past Alcohol Use History: Occasional Past Drug Use History: Marijuana General Exam Limitations: no limitations General appearance: alert, in no apparent distress Head exam: Present: atraumatic, normocephalic, normal inspection Eye exam: Present: normal appearance, PERRL, EOMI Pupils: Present: normal accommodation ENT exam: Present: normal exam, normal oropharynx, mucous membranes moist, TM's normal bilaterally (Fluid noted behind the lateral tympanic membranes), normal external ear exam Neck exam: Present: normal inspection, full ROM. Absent: tenderness Respiratory exam: Present: normal lung sounds bilaterally. Absent: respiratory distress, rhonchi, chest wall tenderness Cardiovascular Exam: Present: regular rate, normal rhythm, normal heart sounds. Absent: systolic murmur Extremities exam: Present: normal inspection, full ROM. Absent: tenderness Back exam: Present: normal inspection, full ROM. Absent: tenderness Neurological exam: Present: alert, oriented X3 Psychiatric exam: Present: normal affect, normal mood Skin exam: Present: warm, dry, intact, normal color Course Vital Signs 02/11/21 02/11/21 09:50 11:31 Temperature 98 F Pulse Rate 72 60 Respiratory 18 18 Rate Blood Pressure 151/76 123/89 O2 Sat by Pulse 99 100 Oximetry EKG Findings - EKG Comments: EKG Findings:: Sinus bradycardia. Ventricular rate 56,. 154, QRS 90, QTC 378. Medical Decision Making - Medical Decision Making 35-year-old male presents emergency department with a chief complaint of dizziness. On physical examination, no focal neural deficits. Richard-Hallpike maneuver positive. I gave the patient some Antivert which helped improve his symptoms. EKG showed no acute findings. Advised the patient to perform the Crystal maneuver at home. Advised him to follow with his primary care physician. Return parameters were thoroughly discussed the patient is understanding agreeable. Case discussed with physician. Disposition Clinical Impression: Dizziness Disposition: HOME SELF-CARE Condition: Stable Instructions (If sedation given, give patient instructions): Dizziness (ED) Additional Instructions: Please return to the Emergency Department if symptoms worsen or any other concerns. Is patient prescribed a controlled substance at d/c from ED?: No Referrals: Vijay Maldonado MD [Primary Care Provider] - 1-2 days Time of Disposition: 11:32
[2021-02-11 11:32] VITALS: BP 123/89; PULSE 60
== END 2021-02-11 11:50 | disposition home or self-care (01) ==
LOC: EC 09:44
DX: R42 Dizziness and giddiness (principal); J45.909 Unspecified asthma, uncomplicated; F41.9 Anxiety disorder, unspecified; F17.290 Nicotine dependence, other tobacco product, uncomplicated; F12.90 Cannabis use, unspecified, uncomplicated
CPT/HCPCS: 93005; 99284

== ENCOUNTER → 2021-02-18 | Outpatient (CLI) | payer OTHER ==
[2021-02-28 22:17] LABS: Arsenic Whole Blood <3 mcg/L (<23); Mercury Whole Blood <5 mcg/L (<OR=10)
== END | disposition home or self-care (01) ==
LOC: LABWHC1 15:50
PROVIDERS: ATTEND Nurse Practitioner Family
DX: M62.838 Other muscle spasm (principal); R19.5 Other fecal abnormalities; R10.9 Unspecified abdominal pain
CPT/HCPCS: 36415; 82175; 82570; 83655; 83825

== ENCOUNTER 2021-03-02 10:05 | Emergency (ER) | payer OTHER ==
[2021-03-02 10:09] VITALS: RESP 18; TEMP 98.2
[2021-03-02] MEDS ORDERED: SODIUM CHLORIDE 0.9% 1,000 ML IV STA (10:52)
[2021-03-02] MEDS ORDERED: ONDANSETRON 4 MG/2 ML VIAL IVP STA (10:52)
[2021-03-02] MEDS ORDERED: PANTOPRAZOLE 40 MG/10 ML VIAL IVP STA (10:52)
--- NOTE | 2021-03-02 10:55 | ED ---
General Adult HPI - General Chief complaint: GI Bleed Stated complaint: blood in stool Time Seen by Provider: 03/02/21 10:16 Source: patient, RN notes reviewed Mode of arrival: ambulatory Limitations: no limitations - History of Present Illness Initial comments: 35-year-old male presents to the emergency room for a chief complaint of blood in stool. Patient states he has had abdominal discomfort for at least the past month. States he was seen here and had a CAT scan that looked okay but he is scheduled for a EGD and colonoscopy next week with Dr. Jarvis. However today patient states his stool was speckled with blood and he became concerned. Yohana ent denies abdominal pain. Admits to nausea, denies vomiting. Denies fevers or chills. Patient has no other complaints at this time including shortness of breath, chest pain, abdominal pain, nausea or vomiting, headache, or visual changes. - Related Data Home Medications Medication Instructions Recorded Confirmed Ergocalciferol [Vitamin D2 (1250 1,250 mcg PO Q30D 02/01/21 03/02/21 Mcg = 87807 Iu)] Ibuprofen [Motrin] 800 mg PO Q6H PRN 02/01/21 03/02/21 Allergies Allergy/AdvReac Type Severity Reaction Status Date / Time propoxyphene napsylate AdvReac Confusion/Passed Verified 03/02/21 11:56 [From Maciel] Out Review of Systems ROS Statement: Those systems with pertinent positive or pertinent negative responses have been documented in the HPI. ROS Other: All systems not noted in ROS Statement are negative. Past Medical History Past Medical History: Asthma Additional Past Medical History / Comment(s): sinus problems History of Any Multi-Drug Resistant Organisms: None Reported Past Surgical History: Orthopedic Surgery Additional Past Surgical History / Comment(s): oral surgery Past Psychological History: Anxiety, PTSD Smoking Status: Vaper Past Alcohol Use History: Occasional Past Drug Use History: Marijuana General Exam Limitations: no limitations General appearance: alert, in no apparent distress Head exam: Present: atraumatic Eye exam: Present: normal appearance, PERRL, EOMI. Absent: scleral icterus, conjunctival injection ENT exam: Present: normal exam, mucous membranes moist Neck exam: Present: normal inspection, full ROM. Absent: tenderness Respiratory exam: Present: normal lung sounds bilaterally. Absent: respiratory distress, wheezes Cardiovascular Exam: Present: regular rate, normal rhythm, normal heart sounds GI/Abdominal exam: Present: soft, normal bowel sounds. Absent: distended, tenderness Neurological exam: Present: alert Course Vital Signs 03/02/21 03/02/21 10:06 12:21 Temperature 98.2 F 98.2 F Pulse Rate 89 74 Respiratory 18 18 Rate Blood Pressure 131/73 129/77 O2 Sat by Pulse 95 97 Oximetry Medical Decision Making - Medical Decision Making Vitals are stable. Patient is well-appearing. CBC CMP unremarkable. Slight elevation in bilirubin however no right upper quadrant tenderness. He is following up with GI in one week for EGD and colonoscopy. Today in the ER he was given Protonix and Zofran, did have some improvement in his symptoms. Patient does take Protonix at home. At this time patient is stable for outpatient follow-up next week at his EGD and colonoscopy appointments. If he has any worsening symptoms prior to that he is aware he can return to the emergency room. - Lab Data Result diagrams: 03/02/21 11:00 03/02/21 11:00 Lab Results 03/02/21 03/02/21 Range/Units 11:00 11:00 WBC 6.3 (3.8-10.6) k/uL RBC 4.44 (4.30-5.90) m/uL Hgb 14.4 (13.0-17.5) gm/dL Hct 39.5 (39.0-53.0) % MCV 88.9 (80.0-100.0) fL MCH 32.4 (25.0-35.0) pg MCHC 36.5 (31.0-37.0) g/dL RDW 12.1 (11.5-15.5) % Plt Count 206 (150-450) k/uL MPV 8.2 Neutrophils % 70 % Lymphocytes % 22 % Monocytes % 5 % Eosinophils % 1 % Basophils % 1 % Neutrophils # 4.4 (1.3-7.7) k/uL Lymphocytes # 1.4 (1.0-4.8) k/uL Monocytes # 0.3 (0-1.0) k/uL Eosinophils # 0.1 (0-0.7) k/uL Basophils # 0.0 (0-0.2) k/uL Sodium 140 (137-145) mmol/L Potassium 3.9 (3.5-5.1) mmol/L Chloride 108 H (98-107) mmol/L Carbon Dioxide 25 (22-30) mmol/L Anion Gap 7 mmol/L BUN 14 (9-20) mg/dL Creatinine 1.08 (0.66-1.25) mg/dL Est GFR (CKD-EPI)AfAm >90 (>60 ml/min/1.73 sqM) Est GFR (CKD-EPI)NonAf 88 (>60 ml/min/1.73 sqM) Glucose 117 H (74-99) mg/dL Calcium 9.3 (8.4-10.2) mg/dL Total Bilirubin 2.1 H (0.2-1.3) mg/dL AST 26 (17-59) U/L ALT 18 (4-49) U/L Alkaline Phosphatase 39 (38-126) U/L Total Protein 6.7 (6.3-8.2) g/dL Albumin 4.1 (3.5-5.0) g/dL Lipase 102 (23-300) U/L Disposition Clinical Impression: Hematochezia Disposition: HOME SELF-CARE Condition: Good Instructions (If sedation given, give patient instructions): Gastrointestinal Bleeding (ED) Additional Instructions: Please follow-up with your EGD and colonoscopy. Follow-up with primary care in the next 1-2 days. Return to the emergency room for any worsening symptoms. Is patient prescribed a controlled substance at d/c from ED?: No Referrals: Vijay Maldonado MD [Primary Care Provider] - 1-2 days Amarilis Mendoza MD [STAFF PHYSICIAN] - 1-2 days Time of Disposition: 12:03
[2021-03-02 11:18] LABS: Basophils % (A) 1 %; Eosinophils # (A) 0.1 k/uL (0-0.7); Eosinophils % (A) 1 %; HCT 39.5 % (39.0-53.0); HGB 14.4 gm/dL (13.0-17.5); Lymphocytes # (A) 1.4 k/uL (1.0-4.8); Lymphocytes % (A) 22 %; MCH 32.4 pg (25.0-35.0); MCHC 36.5 g/dL (31.0-37.0); MCV 88.9 fL (80.0-100.0); Mean Platelet Volume 8.2; Monocytes # (A) 0.3 k/uL (0-1.0); Monocytes % (A) 5 %; Neutrophils # (A) 4.4 k/uL (1.3-7.7); Neutrophils % (A) 70 %; Platelet Count 206 k/uL (150-450); RBC 4.44 m/uL (4.30-5.90); RDW 12.1 % (11.5-15.5); WBC 6.3 k/uL (3.8-10.6)
[2021-03-02 11:24] LABS: ALT 18 U/L (4-49); AST 26 U/L (17-59); African American GFR (CKD) >90 (>60 ml/min/1.73 sqM); Albumin 4.1 g/dL (3.5-5.0); Alkaline Phosphatase 39 U/L (38-126); Anion Gap 7 mmol/L; Blood Urea Nitrogen 14 mg/dL (9-20); Calcium 9.3 mg/dL (8.4-10.2); Carbon Dioxide 25 mmol/L (22-30); Chloride 108 mmol/L (98-107); Glucose 117 mg/dL (74-99); Lipase 102 U/L (23-300); Non-African American GFR(CKD) 88 (>60 ml/min/1.73 sqM); Potassium 3.9 mmol/L (3.5-5.1); Sodium 140 mmol/L (137-145); Total Bilirubin 2.1 mg/dL (0.2-1.3); Total Protein 6.7 g/dL (6.3-8.2)
[2021-03-02 12:22] VITALS: BP 129/77; PULSE 74
== END 2021-03-02 12:22 | disposition home or self-care (01) ==
LOC: EC 10:05
DX: K92.1 Melena (principal); J45.909 Unspecified asthma, uncomplicated; F41.9 Anxiety disorder, unspecified; F43.12 Post-traumatic stress disorder, chronic; F17.290 Nicotine dependence, other tobacco product, uncomplicated; F12.90 Cannabis use, unspecified, uncomplicated; Z88.5 Allergy status to narcotic agent
CPT/HCPCS: 99284; 96374; 96375; 96361; 36415; 80053; 83690; 85025; J2405; C9113

== ENCOUNTER 2021-03-11 09:42 | Day surgery (SDC) | payer OTHER ==
[2021-03-09 13:14] VITALS: BMI 28.8
[~2021-03-11 09:42] MED LIST: LACTATED RINGERS 1,000 ML IV SCH
[2021-03-11 10:14] VITALS: TEMP 97.6
[2021-03-11] MEDS ORDERED: PROPOFOL 10 MG/ML 20 ML VIAL IV ONE (11:04)
--- NOTE | 2021-03-11 11:26 | P.OP ---
Date of Procedure: 03/11/21 Preoperative Diagnosis: Diarrhea History of peptic ulcer disease Postoperative Diagnosis: Antral gastritis Mild esophagitis No hiatal hernia Rectal biopsy pathology pending Procedure(s) Performed: EGD Colonoscopy Anesthesia: MAC Surgeon: Conrado Gasca Pathology: other (Antrum, esophagus, rectum) Condition: stable Disposition: PACU Description of Procedure: Patient's placed on the endoscopy table in the lateral position. She received IV sedation. The gastro-/oropharynx passed in the esophagus and into the stomach. Scope was placed through the pylorus. First and second portion of duodenum appeared normal. Scope summer back the antrum this was mildly inflamed. A biopsies performed. The scope was then retroflexed and remainder of the stomach appeared normal. There was no significant hiatal hernia. The GE junction was at 47. The distal esophagus. Inflamed. A biopsies performed. The proximal esophagus appeared normal. Scope was withdrawn for patient. Next digital rectal exam was performed which revealed no abnormalities. Flexible colonoscopy was then placed patient anus passed with colon. The scope was placed into the cecum centimeters across the valve. Scope was withdrawn. The visualized right colon appeared normal. The transverse colon appeared normal the descending colon appeared normal the sigmoid colon appeared normal. The rectum. Normal however due the patient's symptoms of diarrhea a random rectal biopsies performed. The scope was withdrawn for patient.
[2021-03-11 11:30] VITALS: RESP 16
--- NOTE | 2021-03-11 11:34 | P.GSHP ---
History of Present Illness H&P Date: 03/11/21 Chief Complaint: GERD, diarrhea This is a 35-year-old male presents today for EGD and colonoscopy. Issues with GERD and diarrhea. Past Medical History Past Medical History: Asthma Additional Past Medical History / Comment(s): SEEN ER FOR BLOOD IN STOOL 03/02/21 History of Any Multi-Drug Resistant Organisms: None Reported Past Surgical History: Orthopedic Surgery Additional Past Surgical History / Comment(s): oral surgery. BOXERS FX REPAIR RT HAND Past Anesthesia/Blood Transfusion Reactions: No Reported Reaction Smoking Status: Former smoker, Vaper - Past Family History Mother Family Medical History: Cancer Medications and Allergies Home Medications Medication Instructions Recorded Confirmed Type PARoxetine [Paxil] 10 mg PO HS 03/09/21 03/09/21 History Pantoprazole Sodium [Protonix] 20 mg PO BID 03/09/21 03/09/21 History Allergies Allergy/AdvReac Type Severity Reaction Status Date / Time propoxyphene napsylate AdvReac Confusion/Passed Verified 03/11/21 10:09 [From Maciel] Out Surgical - Exam Vital Signs Temp Pulse Resp BP Pulse Ox 97.6 F 91 15 125/74 96 03/11/21 10:13 03/11/21 10:13 03/11/21 10:13 03/11/21 10:13 03/11/21 10:13 - General well developed, well nourished, no distress - Eyes PERRL - ENT normal pinna - Neck no masses - Respiratory normal expansion - Cardiovascular Rhythm: regular - Abdomen Abdomen: soft, non tender Assessment and Plan Assessment: GERD, diarrhea. We'll perform EGD and colonoscopy.
[2021-03-11 11:45] VITALS: BP 99/62; PULSE 69
== END 2021-03-11 12:20 | disposition home or self-care (01) ==
LOC: ORWHC2ENDO 09:42
PROVIDERS: ATTEND Surgery
DX: K29.50 Unspecified chronic gastritis without bleeding (principal); K21.00 Gastro-esophageal reflux disease with esophagitis, without bleeding; R19.7 Diarrhea, unspecified; J45.909 Unspecified asthma, uncomplicated; Z87.81 Personal history of (healed) traumatic fracture; Z87.891 Personal history of nicotine dependence; Z80.9 Family history of malignant neoplasm, unspecified; Z79.899 Other long term (current) drug therapy; Z88.5 Allergy status to narcotic agent
CPT/HCPCS: 88305; 45380; 43239; J2704

== ENCOUNTER 2021-07-04 06:43 | Emergency (ER) | payer OTHER ==
[2021-07-04 07:00] VITALS: BP 106/60; PULSE 81; RESP 20; TEMP 97.6
[2021-07-04] MEDS ORDERED: SODIUM CHLORIDE 0.9% 1,000 ML IV STA (07:01)
[2021-07-04] MEDS ORDERED: MORPHINE SULFATE 4 MG/ML SYRINGE IV STA (07:21)
[2021-07-04] MEDS ORDERED: ONDANSETRON 4 MG/2 ML VIAL IVP STA (07:21)
[2021-07-04] MEDS ORDERED: PANTOPRAZOLE 40 MG/10 ML VIAL IVP STA (07:21)
[2021-07-04 07:33] LABS: Basophils # (A) 0.1 k/uL (0-0.2); Basophils % (A) 1 %; Eosinophils # (A) 0.4 k/uL (0-0.7); Eosinophils % (A) 4 %; HGB 14.4 gm/dL (13.0-17.5); Lymphocytes # (A) 2.9 k/uL (1.0-4.8); Lymphocytes % (A) 33 %; MCH 31.2 pg (25.0-35.0); MCHC 34.3 g/dL (31.0-37.0); Mean Platelet Volume 8.1; Monocytes # (A) 0.5 k/uL (0-1.0); Monocytes % (A) 6 %; Neutrophils # (A) 4.7 k/uL (1.3-7.7); Neutrophils % (A) 54 %; Platelet Count 204 k/uL (150-450); RBC 4.62 m/uL (4.30-5.90); RDW 12.7 % (11.5-15.5); WBC 8.7 k/uL (3.8-10.6)
--- NOTE | 2021-07-04 07:33 | ED ---
GI Bleed HPI - General Chief complaint: GI Bleed Stated complaint: Blood in Stool Time Seen by Provider: 07/04/21 06:52 Source: patient, RN notes reviewed Mode of arrival: ambulatory - History of Present Illness Initial comments: This is a pleasant 35-year-old male who presents to the emergency department complaining of a small amount of rectal bleeding and cramping in his upper abdomen. Patient states it started last night. Patient states she previously has had symptoms such as this. Patient had a colonoscopy last fall and states that he was diagnosed with inflammation in his stomach area. Patient is not on a proton pump inhibitor. Patient denies any rectal pain or mass. Patient states he had a bowel movement earlier this morning and there was a few flecks of darker red blood. Patient denies any other symptomology. No chest pain or shortness of breath. No fever or chills. No problems with urination. No headache. No dizziness. No lightheadedness. No neck pain. No back pain. No skin rashes or lesions. Patient has no significant past medical history or surgical history. Patient denies using NSAIDs or aspirin. No known blood dyscrasias - Related Data Home Medications Medication Instructions Recorded Confirmed PARoxetine [Paxil] 10 mg PO HS 03/09/21 03/09/21 Pantoprazole Sodium [Protonix] 20 mg PO BID 03/09/21 03/09/21 Previous Rx's Medication Instructions Recorded Acetaminophen [Tylenol] 500 mg PO Q4-6H PRN #24 tab 07/04/21 Pantoprazole Sodium [Protonix] 40 mg PO DAILY #30 tab 07/04/21 Allergies Allergy/AdvReac Type Severity Reaction Status Date / Time propoxyphene napsylate AdvReac Confusion/Passed Verified 07/04/21 07:00 [From [id number]-N] Out Review of Systems ROS Statement: Those systems with pertinent positive or pertinent negative responses have been documented in the HPI. ROS Other: All systems not noted in ROS Statement are negative. Past Medical History Past Medical History: Asthma Additional Past Medical History / Comment(s): sinus problems History of Any Multi-Drug Resistant Organisms: None Reported Past Surgical History: Orthopedic Surgery Additional Past Surgical History / Comment(s): oral surgery, colonscopy Past Psychological History: Anxiety, PTSD Smoking Status: Vaper Past Alcohol Use History: Rare Past Drug Use History: Marijuana General Exam - General Exam Comments Initial Comments: Healthy-appearing 35-year-old male in no significant distress. Does not appear to be ill or toxic. Vital signs are reviewed General appearance: alert, in no apparent distress Head exam: Present: atraumatic, normocephalic, normal inspection Eye exam: Present: normal appearance, PERRL, EOMI. Absent: scleral icterus, conjunctival injection, periorbital swelling ENT exam: Present: normal exam, mucous membranes moist Neck exam: Present: normal inspection. Absent: tenderness, meningismus, lymphadenopathy Respiratory exam: Present: normal lung sounds bilaterally. Absent: respiratory distress, wheezes, rales, rhonchi, stridor Cardiovascular Exam: Present: regular rate, normal rhythm, normal heart sounds. Absent: systolic murmur, diastolic murmur, rubs, gallop, clicks GI/Abdominal exam: Present: soft, tenderness, normal bowel sounds, other (Mild tenderness in the right upper quadrant area without guarding or rebound.). Absent: distended, guarding, rebound, rigid Rectal exam: Present: normal inspection, normal rectal tone, normal prostate, other (Tiny amount of stool on the examination glove with no evidence of gross blood.). Absent: fecal impaction, hemorrhoids, mass, tenderness, prostate tenderness Extremities exam: Present: normal inspection, full ROM, normal capillary refill. Absent: tenderness, pedal edema, joint swelling, calf tenderness Back exam: Present: normal inspection Neurological exam: Present: alert, oriented X3, CN II-XII intact Psychiatric exam: Present: normal affect, normal mood Skin exam: Present: warm, dry, intact, normal color. Absent: rash Course Vital Signs 07/04/21 06:56 Temperature 97.6 F Pulse Rate 81 Respiratory 20 Rate Blood Pressure 106/60 O2 Sat by Pulse 97 Oximetry - Reevaluation(s) Reevaluation #1: 07/04/21 08:58 Patient reevaluated as resting comfortably in the room. Hemodynamics are stable. Medical Decision Making - Medical Decision Making Patient presents with abdominal cramping, mostly in the right upper quadrant. Also has a few flecks of dark blood with stool. Differential diagnosis would be peptic ulcer disease with gastrointestinal bleeding. Inflammatory bowel disease, patient does have tenderness in the right upper quadrant. I think this is less likely be gallbladder related however the patient may have multiple pathologies going on at once. We will work the patient up and reevaluate. Does not appear to be consistent with perforated bowel as he has no rebound or percussion tenderness. Patient's workup was essentially negative. Patient remained he went after stable. Occult blood was negative. Patient was given a dose of Protonix IV here. The case was discussed in detail with ED attending physician. Presentation, findings, treatment plan discussed in detail. Discussed findings with the patient. All questions answered. We'll give the patient follow-up with gastroenterology. Return here immediately if bleeding recurs or any other problems arise. Patient was told to return to the ER for any signs or symptoms worsen. Told to return immediately if any other problems arise. All questions answered. Treatment plan discussed. Patient in agreement Supervising physician was Dr. Ortega - Lab Data Result diagrams: 07/04/21 07:10 07/04/21 07:10 Lab Results 07/04/21 07/04/21 07/04/21 Range/Units 07:10 07:10 07:10 WBC 8.7 (3.8-10.6) k/uL RBC 4.62 (4.30-5.90) m/uL Hgb 14.4 (13.0-17.5) gm/dL Hct 42.0 (39.0-53.0) % MCV 91.0 (80.0-100.0) fL MCH 31.2 (25.0-35.0) pg MCHC 34.3 (31.0-37.0) g/dL RDW 12.7 (11.5-15.5) % Plt Count 204 (150-450) k/uL MPV 8.1 Neutrophils % 54 % Lymphocytes % 33 % Monocytes % 6 % Eosinophils % 4 % Basophils % 1 % Neutrophils # 4.7 (1.3-7.7) k/uL Lymphocytes # 2.9 (1.0-4.8) k/uL Monocytes # 0.5 (0-1.0) k/uL Eosinophils # 0.4 (0-0.7) k/uL Basophils # 0.1 (0-0.2) k/uL PT 10.0 (9.0-12.0) sec INR 0.9 (<1.2) APTT 23.6 (22.0-30.0) sec Sodium 140 (137-145) mmol/L Potassium 4.0 (3.5-5.1) mmol/L Chloride 112 H (98-107) mmol/L Carbon Dioxide 23 (22-30) mmol/L Anion Gap 5 mmol/L BUN 15 (9-20) mg/dL Creatinine 0.87 (0.66-1.25) mg/dL Est GFR (CKD-EPI)AfAm >90 (>60 ml/min/1.73 sqM) Est GFR (CKD-EPI)NonAf >90 (>60 ml/min/1.73 sqM) Glucose 96 (74-99) mg/dL Calcium 9.2 (8.4-10.2) mg/dL Magnesium 2.0 (1.6-2.3) mg/dL Total Bilirubin 0.7 (0.2-1.3) mg/dL AST 22 (17-59) U/L ALT 17 (4-49) U/L Alkaline Phosphatase 38 (38-126) U/L Troponin I (0.000-0.034) ng/mL Total Protein 6.9 (6.3-8.2) g/dL Albumin 3.9 (3.5-5.0) g/dL Stool Occult Blood (Negative) Blood Type Blood Type Confirm Blood Type Recheck Bld Type Recheck Status Antibody Screen Spec Expiration Date 07/04/21 07/04/21 07/04/21 Range/Units 07:10 07:10 07:10 WBC (3.8-10.6) k/uL RBC (4.30-5.90) m/uL Hgb (13.0-17.5) gm/dL Hct (39.0-53.0) % MCV (80.0-100.0) fL MCH (25.0-35.0) pg MCHC (31.0-37.0) g/dL RDW (11.5-15.5) % Plt Count (150-450) k/uL MPV Neutrophils % % Lymphocytes % % Monocytes % % Eosinophils % % Basophils % % Neutrophils # (1.3-7.7) k/uL Lymphocytes # (1.0-4.8) k/uL Monocytes # (0-1.0) k/uL Eosinophils # (0-0.7) k/uL Basophils # (0-0.2) k/uL PT (9.0-12.0) sec INR (<1.2) APTT (22.0-30.0) sec Sodium (137-145) mmol/L Potassium (3.5-5.1) mmol/L Chloride (98-107) mmol/L Carbon Dioxide (22-30) mmol/L Anion Gap mmol/L BUN (9-20) mg/dL Creatinine (0.66-1.25) mg/dL Est GFR (CKD-EPI)AfAm (>60 ml/min/1.73 sqM) Est GFR (CKD-EPI)NonAf (>60 ml/min/1.73 sqM) Glucose (74-99) mg/dL Calcium (8.4-10.2) mg/dL Magnesium (1.6-2.3) mg/dL Total Bilirubin (0.2-1.3) mg/dL AST (17-59) U/L ALT (4-49) U/L Alkaline Phosphatase (38-126) U/L Troponin I <0.012 (0.000-0.034) ng/mL Total Protein (6.3-8.2) g/dL Albumin (3.5-5.0) g/dL Stool Occult Blood Negative (Negative) Blood Type Blood Type Confirm A Positive Blood Type Recheck Bld Type Recheck Status Antibody Screen Spec Expiration Date 07/04/21 Range/Units 07:20 WBC (3.8-10.6) k/uL RBC (4.30-5.90) m/uL Hgb (13.0-17.5) gm/dL Hct (39.0-53.0) % MCV (80.0-100.0) fL MCH (25.0-35.0) pg MCHC (31.0-37.0) g/dL RDW (11.5-15.5) % Plt Count (150-450) k/uL MPV Neutrophils % % Lymphocytes % % Monocytes % % Eosinophils % % Basophils % % Neutrophils # (1.3-7.7) k/uL Lymphocytes # (1.0-4.8) k/uL Monocytes # (0-1.0) k/uL Eosinophils # (0-0.7) k/uL Basophils # (0-0.2) k/uL PT (9.0-12.0) sec INR (<1.2) APTT (22.0-30.0) sec Sodium (137-145) mmol/L Potassium (3.5-5.1) mmol/L Chloride (98-107) mmol/L Carbon Dioxide (22-30) mmol/L Anion Gap mmol/L BUN (9-20) mg/dL Creatinine (0.66-1.25) mg/dL Est GFR (CKD-EPI)AfAm (>60 ml/min/1.73 sqM) Est GFR (CKD-EPI)NonAf (>60 ml/min/1.73 sqM) Glucose (74-99) mg/dL Calcium (8.4-10.2) mg/dL Magnesium (1.6-2.3) mg/dL Total Bilirubin (0.2-1.3) mg/dL AST (17-59) U/L ALT (4-49) U/L Alkaline Phosphatase (38-126) U/L Troponin I (0.000-0.034) ng/mL Total Protein (6.3-8.2) g/dL Albumin (3.5-5.0) g/dL Stool Occult Blood (Negative) Blood Type A Positive Blood Type Confirm Blood Type Recheck No Previous Record Bld Type Recheck Status CABO Indicated Antibody Screen NEGATIVE Spec Expiration Date 07/07/20212309 - Radiology Data Radiology results: report reviewed, image reviewed Disposition Clinical Impression: RUQ abdominal pain, Hepatic steatosis, Rectal bleeding Disposition: HOME SELF-CARE Condition: Good Instructions (If sedation given, give patient instructions): Gastrointestinal Bleeding (ED), Non-Alcoholic Fatty Liver Disease (ED), Rectal Bleeding (ED) Additional Instructions: Make a follow-up appointment with licensed marriage and family therapist as discussed. Do not take any [id number] NSAIDs such as ibuprofen, naproxen, or aspirin. If he needed anything for pain take regular Tylenol. Take the Protonix as directed. Follow-up with your regular physician as directed. Return to the ER immediately if any symptoms worsen, new symptoms arise, or any other problems develop. Prescriptions: Pantoprazole Sodium [Protonix] 40 mg PO DAILY #30 tab Acetaminophen [Tylenol] 500 mg PO Q4-6H PRN #24 tab PRN Reason: Pain Is patient prescribed a controlled substance at d/c from ED?: No Referrals: Vijay Maldonado MD [Primary Care Provider] - 1-2 days Amarilis Mendoza MD [STAFF PHYSICIAN] - 1-2 days Time of Disposition: 09:04
[2021-07-04 07:50] LABS: INR 0.9 (<1.2); Partial Thromboplastin Time 23.6 sec (22.0-30.0)
[2021-07-04 07:53] LABS: ALT 17 U/L (4-49); AST 22 U/L (17-59); African American GFR (CKD) >90 (>60 ml/min/1.73 sqM); Albumin 3.9 g/dL (3.5-5.0); Alkaline Phosphatase 38 U/L (38-126); Anion Gap 5 mmol/L; Blood Urea Nitrogen 15 mg/dL (9-20); Calcium 9.2 mg/dL (8.4-10.2); Carbon Dioxide 23 mmol/L (22-30); Chloride 112 mmol/L (98-107); Glucose 96 mg/dL (74-99); Non-African American GFR(CKD) >90 (>60 ml/min/1.73 sqM); Sodium 140 mmol/L (137-145); Total Bilirubin 0.7 mg/dL (0.2-1.3); Total Protein 6.9 g/dL (6.3-8.2)
--- NOTE | 2021-07-04 08:08 | XR ---
EXAMINATION TYPE: XR abdomen acute w cxr DATE OF EXAM: 07/04/2021 CLINICAL HISTORY: Chest and abdominal pain. Blood in stool. TECHNIQUE: Single frontal view of chest is obtained. Supine and upright views of the abdomen are acq uired. COMPARISON: Chest x-ray April 01, 2018. CT abdomen and pelvis February 01, 2021 FINDINGS: The lungs remain grossly clear without pleural effusion or pneumothorax. Cardiac silhouet te size remains within normal limits. Osseous structures are intact. Gas is noted in nondistended stomach and small bowel loops. Gas and fecal material is seen in nondis tended colon along the periphery. No pneumoperitoneum, visceromegaly, or suspicious calcification i s identified. Degenerative spurring at the space narrowing L4-L5 level redemonstrated. IMPRESSION: 1. No acute pulmonary process. 2. Overall nonobstructive bowel gas pattern.
--- NOTE | 2021-07-04 08:43 | US ---
EXAMINATION TYPE: US gallbladder DATE OF EXAM: 07/04/2021 COMPARISON: CT 02/01/21 CLINICAL HISTORY: RUQ pain . EXAM MEASUREMENTS: Liver Length: 19.9 cm Gallbladder Wall: 0.2 cm CBD: 0.3 cm Right Kidney: 12.4 x 5.9 x 5.3 cm Pancreas: Obscured by bowel gas Liver: The liver is enlarged Gallbladder: No stones seen Evidence for sonographic Maynard's sign: No CBD: wnl Right Kidney: No hydronephrosis or masses seen IMPRESSION: Exam is limited. Hepatomegaly is again noted. Spleen enlargement noted on prior CT is not included on today's exam.
== END 2021-07-04 09:11 | disposition home or self-care (01) ==
LOC: EC 06:43
DX: K62.5 Hemorrhage of anus and rectum (principal); K76.0 Fatty (change of) liver, not elsewhere classified; J45.909 Unspecified asthma, uncomplicated; F41.9 Anxiety disorder, unspecified; F43.12 Post-traumatic stress disorder, chronic; F17.290 Nicotine dependence, other tobacco product, uncomplicated; F12.90 Cannabis use, unspecified, uncomplicated
CPT/HCPCS: 99284; 96374; 96375 ×2; 36415; 86900; 86901; 80053; 83735; 84484; 85025; 85610; 85730; 86850; 82272; 74022; 76705; J2270; J2405; C9113

== ENCOUNTER → 2021-08-15 | Outpatient (CLI) | payer OTHER ==
--- NOTE | 2021-08-15 18:59 | MR ---
EXAMINATION TYPE: MR lumbar spine wo con DATE OF EXAM: 08/15/2021 COMPARISON: MR lumbar spine 06/06/2018 HISTORY: Low back pain that radiates down left leg TECHNIQUE: Multiplanar, multisequence images of the lumbar spine were acquired without IV contrast. L1-L2: Normal disc appearance without desiccation. No herniation, protrusion or disc bulging. No ca nal stenosis is present. Foramina are patent bilaterally. L2-L3: Normal disc appearance without desiccation. No herniation, protrusion or disc bulging. No ca nal stenosis is present. Foramina are patent bilaterally. L3-L4: Normal disc appearance without desiccation. No herniation, protrusion or disc bulging. No ca nal stenosis is present. Foramina are patent bilaterally. L4-L5: Posterior disc bulge causes anterior mass effect on the thecal sac similar to prior exam. No s ignificant foraminal encroachment. There is some facet arthropathy change present. Hypertrophy of lig amentum flavum causes some posterior lateral mass effect on the thecal sac greater on the right. L5-S1: Posterior broad-based disc bulge contacts anterior caudal sac and possibly the proximal S1 ner ve roots, circumferential extension endplate disc complex encroaches upon the neural foramen on the l eft. Similar findings. There is a levoscoliosis centered at the lower lumbar spine. Suspect there is marro w reconversion, correlate for possible anemia. Loss of disc height signal is again noted L4-5 and L5- S1 with endplate discogenic marrow signal change, there is loss of disc height signal with associated vacuum phenomenon similar to prior exam. No significant spinal stenosis. Lumbar vertebral bodies andrew w preserved height. Lumbar segments are intact. No paraspinal masses are identified. Conus medullar is has a normal appearance. IMPRESSION: Degenerative disc disease is similar to prior exam. There is a scoliosis.
== END | disposition home or self-care (01) ==
LOC: RADMRIMAIN 14:58
PROVIDERS: ATTEND Orthopaedic Surgery
DX: M51.16 Intervertebral disc disorders with radiculopathy, lumbar region (principal); M41.86 Other forms of scoliosis, lumbar region
CPT/HCPCS: 72148

== ENCOUNTER → 2021-08-15 | Outpatient (CLI) | payer OTHER ==
--- NOTE | 2021-08-15 22:12 | CT ---
EXAMINATION TYPE: CT lumbar spine wo con DATE OF EXAM: 08/15/2021 3:17 PM COMPARISON: CT dated 02/01/2021 HISTORY: chronic back pain no injury CT DLP: 796.6 mGycm Automated exposure control for dose reduction was used. TECHNIQUE: Unenhanced CT of the lumbar spine was performed. Bone and soft tissue window settings are submitted as well as coronal and sagittal reconstructions. FINDINGS: Mild levoscoliosis of the lower lumbar spine. Right L5 pars interarticularis break without significan t anterolisthesis or retrolisthesis. No definite vertebral body collapse or other definite fracture l ine identified. Marked degenerative changes at L4-5 and L5-S1 levels with opposing endplate osteophyt osis and degenerative discs. Subchondral sclerotic changes are seen at L4-5 and L5-S1 levels. At L1-2 level: No significant disc disease, central spinal canal stenosis or neuroforaminal stenosis. At L2-3 level: No significant disc disease, central spinal canal stenosis or neuroforaminal stenosis. At L3-4 level: No significant disc disease, central spinal canal stenosis or neuroforaminal stenosis. At L4-5 level: Markedly degenerated disc with vacuum phenomenon, posterior osteophytosis and posterio r central/right paracentral disc protrusion, associated with mild ligamentum flavum hypertrophy, caus ing moderate central spinal canal stenosis without significant neuroforaminal stenosis. Suspected com pression of L5 nerve roots in their lateral recesses, more on the right side. At L5-S1 level: Degenerated disc with vacuum phenomenon mild diffuse posterior disc bulge and posteri or osteophytosis, causing no significant central spinal canal stenosis and severe left neuroforaminal stenosis, markedly compressing the left L5 nerve root. No paraspinal lesion. IMPRESSION: Right L5 pars interarticularis break without significant anterolisthesis or retrolisthesis. L4-5 and L5-S1 DDD with spinal canal stenosis and nerve root compression as detailed above, please correlate elizabeth patel.
== END | disposition home or self-care (01) ==
LOC: RADCTMAIN 14:50
PROVIDERS: ATTEND Orthopaedic Surgery
DX: M48.061 Spinal stenosis, lumbar region without neurogenic claudication (principal); M51.37 Other intervertebral disc degeneration, lumbosacral region
CPT/HCPCS: 72131

== ENCOUNTER 2021-10-06 05:53 | Emergency (ER) | payer OTHER ==
[2021-10-06 06:06] VITALS: BP 119/79; PULSE 70; RESP 18; TEMP 97.4
--- NOTE | 2021-10-06 07:01 | ED ---
URI HPI - General Chief Complaint: Upper Respiratory Infection Stated Complaint: Sore Throat Time Seen by Provider: 10/06/21 06:08 Source: patient, RN notes reviewed Mode of arrival: ambulatory - History of Present Illness Initial Comments: This is a 36-year-old male presents to the emergency department for 3 days of coughing, congestion, and minor body aches. He took an at home COVID test yesterday and states that it was potentially slightly positive, as he saw a light pink dominik over the blue line. He wanted to get evaluated to see if he did in fact have COVID. Denies any fevers, chills, shortness of breath, chest pain, nausea, or vomiting. MD Complaint: cough, nasal congestion Onset/Timin -: days(s) - Related Data Home Medications Medication Instructions Recorded Confirmed PARoxetine [Paxil] 10 mg PO HS 03/09/21 03/09/21 Pantoprazole Sodium [Protonix] 20 mg PO BID 03/09/21 03/09/21 Previous Rx's Medication Instructions Recorded Acetaminophen [Tylenol] 500 mg PO Q4-6H PRN #24 tab 07/04/21 Pantoprazole Sodium [Protonix] 40 mg PO DAILY #30 tab 07/04/21 Allergies Allergy/AdvReac Type Severity Reaction Status Date / Time propoxyphene napsylate AdvReac Confusion/Passed Verified 10/06/21 06:06 [From [place]] Out Review of Systems ROS Statement: Those systems with pertinent positive or pertinent negative responses have been documented in the HPI. ROS Other: All systems not noted in ROS Statement are negative. Constitutional: Denies: fever, chills ENT: Reports: congestion. Denies: ear pain, throat pain Respiratory: Reports: cough. Denies: dyspnea Cardiovascular: Denies: chest pain, palpitations Gastrointestinal: Denies: abdominal pain, nausea, vomiting, diarrhea Genitourinary: Denies: urgency, dysuria Musculoskeletal: Denies: back pain Skin: Denies: rash Past Medical History Past Medical History: Asthma Additional Past Medical History / Comment(s): sinus problems History of Any Multi-Drug Resistant Organisms: None Reported Past Surgical History: Orthopedic Surgery Additional Past Surgical History / Comment(s): oral surgery, colonscopy Past Psychological History: Anxiety, PTSD Smoking Status: Vaper Past Alcohol Use History: Rare Past Drug Use History: Marijuana General Exam Limitations: no limitations General appearance: alert, in no apparent distress Head exam: Present: atraumatic, normocephalic, normal inspection ENT exam: Present: normal exam, mucous membranes moist, TM's normal bilaterally, normal external ear exam Neck exam: Present: normal inspection. Absent: tenderness, meningismus, lymphadenopathy Respiratory exam: Present: normal lung sounds bilaterally. Absent: respiratory distress, wheezes, rales, rhonchi, stridor Cardiovascular Exam: Present: regular rate, normal rhythm, normal heart sounds. Absent: systolic murmur, diastolic murmur, rubs, gallop, clicks Neurological exam: Present: alert, oriented X3, CN II-XII intact Psychiatric exam: Present: normal affect, normal mood Skin exam: Present: warm, dry, intact, normal color. Absent: rash Course Vital Signs 10/06/21 10/06/21 06:02 06:32 Temperature 97.4 F L Pulse Rate 70 Respiratory 18 18 Rate Blood Pressure 119/79 O2 Sat by Pulse 97 Oximetry Medical Decision Making - Medical Decision Making This is a 36-year-old male who presents to emergency department for coughing, congestion, and body aches. COVID and influenza testing is negative. Advised the patient that this is likely a viral infection that will resolve on its own, and we do not prescribe antibiotics until about the 10 day dominik due to the likelihood that this is viral.. I offered to prescribe a cough medicine such as Tessalon Perles, however he declined and said that his cough is fairly minor. H e is advised to continue with supportive care, such as remaining well-hydrated and alternating with Tylenol and ibuprofen as needed for fevers and body aches. Return precautions reviewed in depth, the patient is instructed to return to the emergency department with any new, worsening, or concerning symptoms. Patient verbalized understanding. This case was discussed in detail with the attending ED physician. Presentation, findings, and treatment plan discussed in detail as well. - Lab Data Lab Results 10/06/21 10/06/21 Range/Units 06:18 06:18 Coronavirus (PCR) Not Detected (Not Detectd) Influenza Type A RNA Not Detected (Not Detectd) Influenza Type B (PCR) Not Detected (Not Detectd) Disposition Clinical Impression: Upper respiratory tract infection Disposition: HOME SELF-CARE Instructions (If sedation given, give patient instructions): Upper Respiratory Infection (ED) Additional Instructions: Return to the emergency department with any new, worsening, or concerning symptoms. Remain well-hydrated, alternate with Tylenol and Motrin as needed for fevers and body aches. Follow-up with your primary care provider 1 to 2 days. Is patient prescribed a controlled substance at d/c from ED?: No Referrals: Vijay Maldonado MD [Primary Care Provider] - 1-2 days
== END 2021-10-06 07:11 | disposition home or self-care (01) ==
LOC: EC 05:53
DX: J06.9 Acute upper respiratory infection, unspecified (principal); J45.909 Unspecified asthma, uncomplicated; F41.9 Anxiety disorder, unspecified; F43.10 Post-traumatic stress disorder, unspecified; F17.290 Nicotine dependence, other tobacco product, uncomplicated; F12.90 Cannabis use, unspecified, uncomplicated; Z20.822 Contact with and (suspected) exposure to COVID-19
CPT/HCPCS: 87502; 87635; 99283

== ENCOUNTER 2022-09-12 05:15 | Emergency (ER) | payer OTHER ==
[2022-09-12 05:27] VITALS: BP 109/71; PULSE 68; RESP 18; TEMP 98
[2022-09-12] MEDS ORDERED: KETOROLAC 15 MG/ML 1 ML VIAL IM STA (05:41)
--- NOTE | 2022-09-12 05:42 | ED ---
General Adult HPI - General Chief complaint: Upper Respiratory Infection Stated complaint: Not feeling well Time Seen by Provider: 09/12/22 05:17 Source: patient, RN notes reviewed, old records reviewed Mode of arrival: ambulatory Limitations: no limitations - History of Present Illness Initial comments: 36 male presents with 2 days of fatigue, myalgia. Patient states that several members of his household had a gastrointestinal illness last week. He did not develop any vomiting or diarrhea. No measured fever. He said some very mild nasal congestionor throat. No cough. - Related Data Home Medications Medication Instructions Recorded Confirmed PARoxetine [Paxil] 10 mg PO HS 03/09/21 03/09/21 Pantoprazole Sodium [Protonix] 20 mg PO BID 03/09/21 03/09/21 Previous Rx's Medication Instructions Recorded Acetaminophen [Tylenol] 500 mg PO Q4-6H PRN #24 tab 07/04/21 Pantoprazole Sodium [Protonix] 40 mg PO DAILY #30 tab 07/04/21 Allergies Allergy/AdvReac Type Severity Reaction Status Date / Time propoxyphene napsylate AdvReac Confusion/Passed Verified 09/12/22 05:23 [From Maciel] Out Review of Systems ROS Statement: Those systems with pertinent positive or pertinent negative responses have been documented in the HPI. ROS Other: All systems not noted in ROS Statement are negative. Past Medical History Past Medical History: Asthma Additional Past Medical History / Comment(s): sinus problems History of Any Multi-Drug Resistant Organisms: None Reported Past Surgical History: Orthopedic Surgery Additional Past Surgical History / Comment(s): oral surgery, colonscopy Past Psychological History: Anxiety, PTSD Smoking Status: Vaper Past Alcohol Use History: Rare Past Drug Use History: Marijuana General Exam Limitations: no limitations General appearance: alert, in no apparent distress Head exam: Present: atraumatic, normocephalic Eye exam: Present: normal appearance, PERRL Neck exam: Present: normal inspection. Absent: tenderness, meningismus Respiratory exam: Present: normal lung sounds bilaterally. Absent: respiratory distress, wheezes Cardiovascular Exam: Present: regular rate, normal rhythm GI/Abdominal exam: Present: soft. Absent: distended, tenderness Extremities exam: Present: normal inspection, normal capillary refill Neurological exam: Present: alert, oriented X3, CN II-XII intact. Absent: motor sensory deficit Psychiatric exam: Present: normal affect, normal mood Skin exam: Present: warm, dry, intact. Absent: cyanosis, diaphoretic Course Vital Signs 09/12/22 05:24 Temperature 98 F Pulse Rate 68 Respiratory 18 Rate Blood Pressure 109/71 O2 Sat by Pulse 98 Oximetry Medical Decision Making - Medical Decision Making Was pt. sent in by a medical professional or institution (FEDERICO Pereira, KETTLE SKIMMER, urgent care, hospital, or half-way...) When possible be specific @ -[No] Did you speak to anyone other than the patient for history (EMS, parent, family, police, friend...)? What history was obtained from this source @ -[No] Did you review nursing and triage notes (agree or disagree)? Why? @ -[I reviewed and agree with nursing and triage notes] Were old charts reviewed (outside hosp., previous admission, EMS record, old EKG, old radiological studies, urgent care reports/EKG's, half-way records)? Report findings @ -[No old charts were reviewed] Differential Diagnosis (chest pain, altered mental status, abdominal pain women, abdominal pain men, vaginal bleeding, weakness, fever, dyspnea, syncope, headache, dizziness, GI bleed, back pain, seizure, CVA, palpatations, mental health, musculoskeletal)? @ -Viral illness, pneumonia, inflammatory process EKG interpreted by me (3pts min.). @ -[As above] X-rays interpreted by me (1pt min.). @ -Consider chest x-ray however the patient is afebrile, normal heart rate and normal oxygenation CT interpreted by me (1pt min.). @ -[None done] U/S interpreted by me (1pt. min.). @ -[None done] What testing was considered but not performed or refused? (CT, X-rays, U/S, labs)? Why? @ -[None] What meds were considered but not given or refused? Why? @ -[None] Did you discuss the management of the patient with other professionals (professionals i.e. FEDERICO Pereira, KETTLE SKIMMER, lab, RT, psych nurse, social sciences department chair, rotary shear worker helper, teacher, dog license officer supervisor, heel caser)? Give summary @ -[No] Was smoking cessation discussed for >3mins.? @ -[No] Was critical care preformed (if so, how long)? @ -[No] Were there social determinants of health that impacted care today? How? (Homelessness, low income, unemployed, alcoholism, drug addiction, transportation, low edu. Level, literacy, decrease access to med. care, usp, rehab)? @ -[No] Was there de-escalation of care discussed even if they declined (Discuss DNR or withdrawal of care, Hospice)? DNR status @ -[No] What co-morbidities impacted this encounter? (DM, HTN, Smoking, COPD, CAD, Cancer, CVA, ARF, Chemo, Hep., AIDS, mental health diagnosis, sleep apnea, morbid obesity)? @ -[None] Was patient admitted / discharged? Hospital course, mention meds given and route, prescriptions, significant lab abnormalities, going to OR and other pertinent info. @ -[hospital course] Undiagnosed new problem with uncertain prognosis? @ -36-year-old male with 2 days of fatigue, myalgia. Patient afebrile with stable vitals. No abdominal pain, no cough. Likely viral syndrome. We did discuss return parameters including development of high fever, vomiting, worsening symptoms. Patient receives a viral swab today results are pending. He should follow-up with his primary care physician. Drug Therapy requiring intensive monitoring for toxicity (Heparin, Nitro, Insulin, Cardizem)? @ -[No] Were any procedures done? @ -[No] Diagnosis/symptom? @ -[Viral syndrome] Acute, or Chronic, or Acute on Chronic? @ -[Acute] Uncomplicated (without systemic symptoms) or Complicated (systemic symptoms)? @ -[default] Side effects of treatment? @ -[No] Exacerbation, Progression, or Severe Exacerbation? @ -[No] Poses a threat to life or bodily function? How? (Chest pain, [place], [place], pneumonia, PE, COPD, DKA, ARF, appy, cholecystitis, CVA, Diverticulitis, Homicidal, Suicidal, threat to staff... and all critical care pts) @ -[No] Disposition Clinical Impression: Viral infection Disposition: HOME SELF-CARE Condition: Fair Instructions (If sedation given, give patient instructions): Viral Syndrome (ED) Is patient prescribed a controlled substance at d/c from ED?: No Referrals: Vijay Maldonado MD [Primary Care Provider] - 1-2 days Time of Disposition: 05:42
== END 2022-09-12 06:02 | disposition home or self-care (01) ==
LOC: EC 05:15
DX: B34.9 Viral infection, unspecified (principal); J45.909 Unspecified asthma, uncomplicated; F41.9 Anxiety disorder, unspecified; F17.290 Nicotine dependence, other tobacco product, uncomplicated; F12.90 Cannabis use, unspecified, uncomplicated; Z20.822 Contact with and (suspected) exposure to COVID-19; Z79.899 Other long term (current) drug therapy; Z88.8 Allergy status to other drugs, medicaments and biological substances
CPT/HCPCS: 87636; 99283; 96372; J1885

== ENCOUNTER 2023-06-15 12:16 | Emergency (ER) | payer BC, OTHER ==
[2023-06-15] MEDS ORDERED: ONDANSETRON 4 MG/2 ML VIAL IVP STA (14:49)
--- NOTE | 2023-06-15 14:51 | ED ---
General Adult HPI - General Chief complaint: Weakness Stated complaint: Body Aches Time Seen by Provider: 06/15/23 12:38 Source: patient, RN notes reviewed Mode of arrival: ambulatory - History of Present Illness Initial comments: 37-year-old male with no significant past medical history presents to the emergency department with a chief complaint of weakness. Patient reports generalized body aches, headache, nasal congestion and 2 episodes of vomiting yesterday. He also reports diarrhea. He denies any known recent sick contacts. Denies any known fevers or chills, cough, sore throat, abdominal pain or chest pain. Patient reports resolution of symptoms today he is concerned he may be Covid positive. - Related Data Home Medications Medication Instructions Recorded Confirmed PARoxetine [Paxil] 10 mg PO HS 03/09/21 03/09/21 Pantoprazole Sodium [Protonix] 20 mg PO BID 03/09/21 03/09/21 Previous Rx's Medication Instructions Recorded Acetaminophen [Tylenol] 500 mg PO Q4-6H PRN #24 tab 07/04/21 Pantoprazole Sodium [Protonix] 40 mg PO DAILY #30 tab 07/04/21 Ondansetron Odt [Zofran Odt] 4 mg PO Q8HR PRN #10 tab 06/15/23 Allergies Allergy/AdvReac Type Severity Reaction Status Date / Time propoxyphene napsylate AdvReac Confusion/Passed Verified 09/12/22 05:23 [From Kathy-N] Out Review of Systems ROS Statement: Those systems with pertinent positive or pertinent negative responses have been documented in the HPI. ROS Other: All systems not noted in ROS Statement are negative. Past Medical History Past Medical History: Asthma Additional Past Medical History / Comment(s): sinus problems History of Any Multi-Drug Resistant Organisms: None Reported Past Surgical History: Orthopedic Surgery Additional Past Surgical History / Comment(s): oral surgery, colonscopy Past Psychological History: Anxiety, PTSD Smoking Status: Vaper Past Alcohol Use History: Rare Past Drug Use History: Marijuana General Exam - General Exam Comments Initial Comments: General: Alert, in no acute distress Head: atraumatic normocephalic. Eyes PERRL, EOMI intact, mucous membranes moist Respiratory: Lungs clear to auscultation bilaterally Cardiovascular: Regular rate and rhythm Abdominal: Soft without guarding or rebound Extremities: Normal inspection with full range of motion and normal capillary refill Neuroogic: alert and oriented 3, CN II-XII intact, able to ambulate with steady gait Skin: warm dry and intact with normal color Course Vital Signs 06/15/23 06/15/23 06/15/23 12:34 12:42 15:16 Temperature 98.7 F 98.2 F Pulse Rate 87 80 Respiratory 17 18 16 Rate Blood Pressure 125/82 120/84 O2 Sat by Pulse 97 98 Oximetry Medical Decision Making - Medical Decision Making Was pt. sent in by a medical professional or institution (, FEDERICO, STATISTICAL ENGINEER, urgent care, hospital, or care home...) When possible be specific @ -[No] Did you speak to anyone other than the patient for history (EMS, parent, family, police, friend...)? What history was obtained from this source @ -[No] Did you review nursing and triage notes (agree or disagree)? Why? @ -[I reviewed and agree with nursing and triage notes] Were old charts reviewed (outside hosp., previous admission, EMS record, old EKG, old radiological studies, urgent care reports/EKG's, care home records)? Report findings @ -[No old charts were reviewed] Differential Diagnosis (chest pain, altered mental status, abdominal pain women, abdominal pain men, vaginal bleeding, weakness, fever, dyspnea, syncope, headache, dizziness, GI bleed, back pain, seizure, CVA, palpatations, mental health, musculoskeletal)? @ -[not applicable] EKG interpreted by me (3pts min.). @ -[As above] X-rays interpreted by me (1pt min.). @ -[None done] CT interpreted by me (1pt min.). @ -[None done] U/S interpreted by me (1pt. min.). @ -[None done] What testing was considered but not performed or refused? (CT, X-rays, U/S, labs)? Why? @ -[None] What meds were considered but not given or refused? Why? @ -[None] Did you discuss the management of the patient with other professionals (professionals i.e. FEDERICO Pereira, STATISTICAL ENGINEER, lab, RT, psych nurse, social worker palliative care, wic site coordinator, teacher, marketing officer, case assembler)? Give summary @ -[No] Was smoking cessation discussed for >3mins.? @ -[No] Was critical care preformed (if so, how long)? @ -[No] Were there social determinants of health that impacted care today? How? (Homelessness, low income, unemployed, alcoholism, drug addiction, transportation, low edu. Level, literacy, decrease access to med. care, long term, rehab)? @ -[No] Was there de-escalation of care discussed even if they declined (Discuss DNR or withdrawal of care, Hospice)? DNR status @ -[No] What co-morbidities impacted this encounter? (DM, HTN, Smoking, COPD, CAD, Cancer, CVA, ARF, Chemo, Hep., AIDS, mental health diagnosis, sleep apnea, morbid obesity)? @ -[None] Was patient admitted / discharged? Hospital course, mention meds given and route, prescriptions, significant lab abnormalities, going to OR and other pertinent info. @ -Discharged. This is a 37-year-old male who presents the emergency department with a chief complaint of weakness. Patient had a thorough history and physical exam performed. Physical exam essentially unremarkable. Vital signs are stable. Patient afebrile. Patient had vital signs which were negative. I discussed the results in detail with the patient verbalized understanding and questions were addressed. He was provided started pack of Zofran. He was provided work excuse. Discharged in stable condition. Return precautions were discussed at length. Discharged in stable condition Undiagnosed new problem with uncertain prognosis? @ -[No] Drug Therapy requiring intensive monitoring for toxicity (Heparin, Nitro, Insulin, Cardizem)? @ -[No] Were any procedures done? @ -[No] Diagnosis/symptom? @ -Generalized weakness Acute, or Chronic, or Acute on Chronic? @ -Acute Uncomplicated (without systemic symptoms) or Complicated (systemic symptoms)? @ -Uncomplicated Side effects of treatment? @ -[No] Exacerbation, Progression, or Severe Exacerbation? @ -[No] Poses a threat to life or bodily function? How? (Chest pain, [place], [place], pneumonia, PE, COPD, DKA, ARF, appy, cholecystitis, CVA, Diverticulitis, Homicidal, Suicidal, threat to staff... and all critical care pts) @ -Low likelihood - Lab Data Lab Results 06/15/23 Range/Units 13:23 Influenza Type A (PCR) Not Detected (Not Detectd) Influenza Type B (PCR) Not Detected (Not Detectd) RSV (PCR) Not Detected (Not Detectd) SARS-CoV-2 (PCR) Not Detected (Not Detectd) Disposition Clinical Impression: Malaise Disposition: HOME SELF-CARE Condition: Stable Additional Instructions: PLease monitor symptoms closely Please take for nausea or vomiting Please return if worsening symptoms Prescriptions: Ondansetron Odt [Zofran Odt] 4 mg PO Q8HR PRN #10 tab PRN Reason: Nausea Is patient prescribed a controlled substance at d/c from ED?: No Referrals: Vijay Maldonado MD [Primary Care Provider] - 1-2 days Time of Disposition: 14:50
[2023-06-15 15:35] VITALS: BP 120/84; PULSE 80; RESP 16; TEMP 98.2
== END 2023-06-15 19:46 | disposition home or self-care (01) ==
LOC: EC 12:16
DX: R53.81 Other malaise (principal); J45.909 Unspecified asthma, uncomplicated; F17.290 Nicotine dependence, other tobacco product, uncomplicated; F12.90 Cannabis use, unspecified, uncomplicated; Z86.59 Personal history of other mental and behavioral disorders; Z88.8 Allergy status to other drugs, medicaments and biological substances; Z20.822 Contact with and (suspected) exposure to COVID-19
CPT/HCPCS: 87636; 99284

== ENCOUNTER 2023-08-24 09:08 | Emergency (ER) | payer BC ==
[2023-08-24 09:28] LABS: Glucose,Whole Blood 88 mg/dL (70-110)
[2023-08-24 09:33] VITALS: TEMP 98.6
--- NOTE | 2023-08-24 09:34 | ED ---
General Adult HPI - General Chief complaint: Syncope Stated complaint: near syncope Time Seen by Provider: 08/24/23 09:15 Source: patient, RN notes reviewed Mode of arrival: ambulatory Limitations: no limitations - History of Present Illness Initial comments: 37-year-old male, with no significant past medical history, presents with a chief complaint of near syncope. Patient states that he woke up last night from sleep and had a feeling like he was going to pass out. Patient states that at this time he felt dizzy and started to experience cold sweats, but did not lose consciousness. Patient states that he recently started new weight loss injectabl e medication, ZepBound, with his first dose being on Sunday, but reports no nausea, vomiting, diarrhea. She admits that he has been exercising every day over the last 10 days, has been eating less, and admits to skipping dinner last night. States that this morning he drank an energy drink and ate half a protein bar. Denies chest pain, palpitations, shortness of breath, headache. - Related Data Home Medications Medication Instructions Recorded Confirmed Tirzepatide [Zepbound] 2.5 mg SQ DAILY 08/24/23 08/24/23 Previous Rx's Medication Instructions Recorded Ondansetron Odt [Zofran Odt] 4 mg PO Q8HR PRN #10 tab 06/15/23 Allergies Allergy/AdvReac Type Severity Reaction Status Date / Time propoxyphene napsylate AdvReac Confusion/Passed Verified 09/12/22 05:23 [From Kathy-Heber] Out Review of Systems ROS Statement: Those systems with pertinent positive or pertinent negative responses have been documented in the HPI. ROS Other: All systems not noted in ROS Statement are negative. Past Medical History Past Medical History: Asthma Additional Past Medical History / Comment(s): sinus problems History of Any Multi-Drug Resistant Organisms: None Reported Past Surgical History: Orthopedic Surgery Additional Past Surgical History / Comment(s): oral surgery, colonscopy Past Psychological History: Anxiety, PTSD Smoking Status: Vaper Past Alcohol Use History: Rare Past Drug Use History: Marijuana General Exam Limitations: no limitations General appearance: alert, in no apparent distress Head exam: Present: atraumatic, normocephalic, normal inspection Eye exam: Present: normal appearance, PERRL, EOMI. Absent: scleral icterus, conjunctival injection, periorbital swelling ENT exam: Present: normal exam, mucous membranes moist Neck exam: Present: normal inspection. Absent: tenderness, meningismus, l ymphadenopathy Respiratory exam: Present: normal lung sounds bilaterally. Absent: respiratory distress, wheezes, rales, rhonchi, stridor Cardiovascular Exam: Present: regular rate, normal rhythm, normal heart sounds. Absent: systolic murmur, diastolic murmur, rubs, gallop, clicks GI/Abdominal exam: Present: soft, normal bowel sounds. Absent: distended, tenderness, guarding, rebound, rigid Extremities exam: Present: normal inspection, full ROM, normal capillary refill. Absent: tenderness, pedal edema, joint swelling, calf tenderness Back exam: Present: normal inspection Neurological exam: Present: alert, oriented X3, CN II-XII intact Psychiatric exam: Present: normal affect, normal mood Skin exam: Present: warm, dry, intact, normal color. Absent: rash Course Vital Signs 08/24/23 09:11 Temperature 98.6 F Pulse Rate 94 Respiratory 18 Rate Blood Pressure 152/68 O2 Sat by Pulse 98 Oximetry - Reevaluation(s) Reevaluation #1: patient is "feeling better' after fluid administration. 08/24/23 10:15 Medical Decision Making - Medical Decision Making Was pt. sent in by a medical professional or institution (FEDERICO Pereira, PRESS FEEDER, urgent care, hospital, or longterm...) When possible be specific @ -No Did you speak to anyone other than the patient for history (EMS, parent, family, police, friend...)? What history was obtained from this source @ -No Did you review nursing and triage notes (agree or disagree)? Why? @ -I reviewed and agree with nursing and triage notes Were old charts reviewed (outside hosp., previous admission, EMS record, old EKG, old radiological studies, urgent care reports/EKG's, longterm records)? Report findings @ -No old charts were reviewed Differential Diagnosis (chest pain, altered mental status, abdominal pain women, abdominal pain men, vaginal bleeding, weakness, fever, dyspnea, syncope, hea dache, dizziness, GI bleed, back pain, seizure, CVA, palpatations, mental health, musculoskeletal)? @ -Differential Syncope: Valvular disease, hypertrophic cardiomyopathy, pulmonary embolism, tamponade, tachycardia, bradycardia, [place], hypovolemia, hemorrhage, dissection, anemia, intracranial hemorrhage, seizure, hypoglycemia, carbon monoxide poisoning, this is not meant to be an all-inclusive list. EKG interpreted by me (3pts min.). @ -completed at 10:20 revealed sinus rhythm, ventricular rate 67, NV interval 155, QTc 404. No acute ST segment depression or elevation. X-rays interpreted by me (1pt min.). @ -None done CT interpreted by me (1pt min.). @ -None done U/S interpreted by me (1pt. min.). @ -None done What testing was considered but not performed or refused? (CT, X-rays, U/S, labs)? Why? @ -None What meds were considered but not given or refused? Why? @ -None Did you discuss the management of the patient with other professionals (professionals i.e. , PA, PRESS FEEDER, lab, RT, psych nurse, social services, change management lead, teacher, juvenile justice officer, field case manager)? Give summary @ -No Was smoking cessation discussed for >3mins.? @ -No Was critical care preformed (if so, how long)? @ -No Were there social determinants of health that impacted care today? How? (Homelessness, low income, unemployed, alcoholism, drug addiction, transportation, low edu. Level, literacy, decrease access to med. care, senior living, rehab)? @ -No Was there de-escalation of care discussed even if they declined (Discuss DNR or withdrawal of care, Hospice)? DNR status @ -No What co-morbidities impacted this encounter? (DM, HTN, Smoking, COPD, CAD, Cancer, CVA, ARF, Chemo, Hep., AIDS, mental health diagnosis, sleep apnea, m orbid obesity)? @ -None Was patient admitted / discharged? Hospital course, mention meds given and r oute, prescriptions, significant lab abnormalities, going to OR and other pertinent info. @ -Discharged. 37-year-old male presents to ED with chief complaint of near syncope. Patient's POC glucose 88, CBC WNL. CMP revealed Na 136 and Bilirubin 2.1. Given 1000 mL fluid bolus. Advise patient to hold injectable medication until follow-up appointment with primary care provider. Undiagnosed new problem with uncertain prognosis? @ -No Drug Therapy requiring intensive monitoring for toxicity (Heparin, Nitro, Insulin, Cardizem)? @ -No Were any procedures done? @ -No Diagnosis/symptom? @ -Vasovagal near syncope Acute, or Chronic, or Acute on Chronic? @ -Acute Uncomplicated (without systemic symptoms) or Complicated (systemic symptoms)? @ -Uncomplicated Side effects of treatment? @ -No Exacerbation, Progression, or Severe Exacerbation? @ -No Poses a threat to life or bodily function? How? (Chest pain, [place], [place], pneumonia, PE, COPD, DKA, ARF, appy, cholecystitis, CVA, Diverticulitis, Homicidal, S uicidal, threat to staff... and all critical care pts) @ -No - Lab Data Result diagrams: 08/24/23 09:49 08/24/23 09:49 Lab Results 08/24/23 08/24/23 08/24/23 Range/Units 09:27 09:49 09:49 WBC 6.4 (3.8-10.6) k/uL RBC 4.95 (4.30-5.90) m/uL Hgb 15.5 (13.0-17.5) gm/dL Hct 43.3 (39.0-53.0) % MCV 87.6 (80.0-100.0) fL MCH 31.3 (25.0-35.0) pg MCHC 35.7 (31.0-37.0) g/dL RDW 12.3 (11.5-15.5) % Plt Count 201 (150-450) k/uL MPV 8.0 Neutrophils % 65 % Lymphocytes % 24 % Monocytes % 6 % Eosinophils % 2 % Basophils % 0 % Neutrophils # 4.2 (1.3-7.7) k/uL Lymphocytes # 1.5 (1.0-4.8) k/uL Monocytes # 0.4 (0-1.0) k/uL Eosinophils # 0.2 (0-0.7) k/uL Basophils # 0.0 (0-0.2) k/uL Sodium 136 L (137-145) mmol/L Potassium 4.1 (3.5-5.1) mmol/L Chloride 106 (98-107) mmol/L Carbon Dioxide 23 (22-30) mmol/L Anion Gap 7 mmol/L BUN 21 H (9-20) mg/dL Creatinine 1.00 (0.66-1.25) mg/dL Est GFR (CKD-EPI)AfAm >90 (>60 ml/min/1.73 sqM) Est GFR (CKD-EPI)NonAf >90 (>60 ml/min/1.73 sqM) Glucose 90 (74-99) mg/dL POC Glucose (mg/dL) 88 (70-110) mg/dL POC Glu Accounting Administrative Assistant ID Truong Oliveira Calcium 9.4 (8.4-10.2) mg/dL Total Bilirubin 2.1 H (0.2-1.3) mg/dL AST 46 (17-59) U/L ALT 59 H (4-49) U/L Alkaline Phosphatase 47 (38-126) U/L Total Protein 7.5 (6.3-8.2) g/dL Albumin 4.7 (3.5-5.0) g/dL Disposition Clinical Impression: Vasovagal near syncope Narrative: Please return to the Emergency Department if symptoms worsen or any other concerns. Advise patient to hold injectable medication, Zepbound, until follow- up appointment with primary care provider next week. Disposition: HOME SELF-CARE Condition: Good Instructions (If sedation given, give patient instructions): Near Syncope (ED) Is patient prescribed a controlled substance at d/c from ED?: No Referrals: Vijay Maldonado MD [Primary Care Provider] - 1-2 days Time of Disposition: 10:20
[2023-08-24 09:57] LABS: Basophils % (A) 0 %; Eosinophils # (A) 0.2 k/uL (0-0.7); Eosinophils % (A) 2 %; HCT 43.3 % (39.0-53.0); HGB 15.5 gm/dL (13.0-17.5); Lymphocytes # (A) 1.5 k/uL (1.0-4.8); Lymphocytes % (A) 24 %; MCH 31.3 pg (25.0-35.0); MCHC 35.7 g/dL (31.0-37.0); MCV 87.6 fL (80.0-100.0); Monocytes # (A) 0.4 k/uL (0-1.0); Monocytes % (A) 6 %; Neutrophils # (A) 4.2 k/uL (1.3-7.7); Neutrophils % (A) 65 %; Platelet Count 201 k/uL (150-450); RBC 4.95 m/uL (4.30-5.90); RDW 12.3 % (11.5-15.5); WBC 6.4 k/uL (3.8-10.6)
[2023-08-24] MEDS: SODIUM CHLORIDE 0.9% 1,000 ML IV STA (10:07)
[2023-08-24 10:24] LABS: ALT 59 U/L (4-49); AST 46 U/L (17-59); African American GFR (CKD) >90 (>60 ml/min/1.73 sqM); Albumin 4.7 g/dL (3.5-5.0); Alkaline Phosphatase 47 U/L (38-126); Anion Gap 7 mmol/L; Blood Urea Nitrogen 21 mg/dL (9-20); Calcium 9.4 mg/dL (8.4-10.2); Carbon Dioxide 23 mmol/L (22-30); Chloride 106 mmol/L (98-107); Glucose 90 mg/dL (74-99); Non-African American GFR(CKD) >90 (>60 ml/min/1.73 sqM); Potassium 4.1 mmol/L (3.5-5.1); Sodium 136 mmol/L (137-145); Total Bilirubin 2.1 mg/dL (0.2-1.3); Total Protein 7.5 g/dL (6.3-8.2)
[2023-08-24 10:39] VITALS: BP 110/72; PULSE 80; RESP 17
== END 2023-08-24 10:51 | disposition home or self-care (01) ==
LOC: EC 09:08
DX: R55 Syncope and collapse (principal); J45.909 Unspecified asthma, uncomplicated; F12.90 Cannabis use, unspecified, uncomplicated; F17.290 Nicotine dependence, other tobacco product, uncomplicated; Z86.59 Personal history of other mental and behavioral disorders; Z88.8 Allergy status to other drugs, medicaments and biological substances
CPT/HCPCS: 36415; 80053; 85025; 93005; 96360; 99284

== ENCOUNTER 2023-09-10 11:31 | Emergency (ER) | payer BC ==
--- NOTE | 2023-09-10 11:46 | ED ---
Nausea/Vomiting/Diarrhea HPI - General Chief complaint: Nausea/Vomiting/Diarrhea Stated complaint: Diarrhea Time Seen by Provider: 09/10/23 11:45 Source: patient, RN notes reviewed Mode of arrival: ambulatory Limitations: no limitations - History of Present Illness Initial comments: Patient is a 37-year-old male presenting to the ER with a chief complaint of diarrhea. He states he ate crunchy breakfast burrito from [employer] on Sunday. He states he started experiencing abdominal pain and diarrhea on Sunday. Denies any blood or dark tarry stools. He states the pain is a cramping abdominal pain and was unable to get out of bed all weekend due to diarrhea every 30-40 minutes. He also believes he is dehydrated he has he has had a decreased appetite. He has not tried anything [id number]. Patient reports he has been taking Zepbound for weight loss. Denies any focal abdominal tenderness. Denies any chest pain, shortness of breath, fevers, chills, chest pain, shortness of breath, urinary complaints. - Related Data Home Medications Medication Instructions Recorded Confirmed Tirzepatide [Zepbound] 2.5 mg SQ DAILY 08/24/23 08/24/23 Previous Rx's Medication Instructions Recorded Ondansetron Odt [Zofran Odt] 4 mg PO Q8HR PRN #10 tab 06/15/23 Loperamide HCl [Imodium A-D] 2 mg PO Q4-6H #10 tablet 09/10/23 Allergies Allergy/AdvReac Type Severity Reaction Status Date / Time propoxyphene napsylate AdvReac Confusion/Passed Verified 09/10/23 11:36 [From Maciel] Out Review of Systems ROS Statement: Those systems with pertinent positive or pertinent negative responses have been documented in the HPI. ROS Other: All systems not noted in ROS Statement are negative. Past Medical History Past Medical History: Asthma Additional Past Medical History / Comment(s): sinus problems History of Any Multi-Drug Resistant Organisms: None Reported Past Surgical History: Orthopedic Surgery Additional Past Surgical History / Comment(s): oral surgery, colonscopy Past Psychological History: Anxiety, PTSD Smoking Status: Vaper Past Alcohol Use History: Rare Past Drug Use History: Marijuana General Exam - General Exam Comments Initial Comments: Visual Physical Exam Vital signs reviewed General: Well-appearing, nontoxic, no acute distress. Head: Normocephalic, atraumatic Eyes: PERRLA, EOMI ENT: Airway patent Chest: Nonlabored breathing Skin: No visual rash, normal skin tone Neuro: Alert and oriented 3 Musculoskeletal: No gross abnormalities Limitations: no limitations General appearance: alert, in no apparent distress Head exam: Present: atraumatic, normocephalic, normal inspection Eye exam: Present: normal appearance, PERRL, EOMI. Absent: scleral icterus, conjunctival injection, periorbital swelling ENT exam: Present: normal exam, mucous membranes moist Respiratory exam: Present: normal lung sounds bilaterally. Absent: respiratory distress, wheezes, rales, rhonchi, stridor Cardiovascular Exam: Present: regular rate, normal rhythm, normal heart sounds. Absent: systolic murmur, diastolic murmur, rubs, gallop, clicks GI/Abdominal exam: Present: soft, normal bowel sounds. Absent: distended, tenderness, guarding, rebound, rigid Extremities exam: Present: normal inspection, full ROM, normal capillary refill. Absent: tenderness, pedal edema, joint swelling, calf tenderness Neurological exam: Present: alert, oriented X3, CN II-XII intact Psychiatric exam: Present: normal affect, normal mood Skin exam: Present: warm, dry, intact, normal color. Absent: rash Course Vital Signs 09/10/23 09/10/23 09/10/23 11:34 14:36 16:25 Temperature 98.1 F Pulse Rate 116 H 75 74 Respiratory 18 16 18 Rate Blood Pressure 114/83 101/68 112/79 O2 Sat by Pulse 96 98 98 Oximetry Medical Decision Making - Medical Decision Making I performed the quick note portion of this chart. Electronically signed by RAJENDRA LegerC Was pt. sent in by a medical professional or institution (FEDERICO Pereira, GRANTS ADMINISTRATOR, urgent c are, hospital, or longterm...) When possible be specific @ -No Did you speak to anyone other than the patient for history (EMS, parent, family, police, friend...)? What history was obtained from this source @ -No Did you review nursing and triage notes (agree or disagree)? Why? @ -I reviewed and agree with nursing and triage notes Were old charts reviewed (outside hosp., previous admission, EMS record, old EKG, old radiological studies, urgent care reports/EKG's, longterm records)? Report findings @ -No old charts were reviewed Differential Diagnosis (chest pain, altered mental status, abdominal pain women, abdominal pain men, vaginal bleeding, weakness, fever, dyspnea, syncope, headache, dizziness, GI bleed, back pain, seizure, CVA, palpatations, mental health, musculoskeletal)? @ -Differential Abdominal Pain Men: Appendicitis, cholecystitis, diverticulosis, ischemic bowel, pancreatitis, hepatitis, UTI, gastroenteritis, AAA, incarcerated hernia, bowel obstruction, co nstipation, inflammatory bowel, hepatitis, peptic ulcer disease, splenic infarction, perforated viscus, testicular torsion, this is not meant to be an all-inclusive list EKG interpreted by me (3pts min.). @ -None X-rays interpreted by me (1pt min.). @ -None done CT interpreted by me (1pt min.). @ -None done U/S interpreted by me (1pt. min.). @ -None done What testing was considered but not performed or refused? (CT, X-rays, U/S, labs)? Why? @ -None What meds were considered but not given or refused? Why? @ -None Did you discuss the management of the patient with other professionals (prof essionals i.e. , PA, GRANTS ADMINISTRATOR, lab, RT, psych nurse, social studies teacher, roller repairer, teacher, safety patrol officer, skilled nursing case manager)? Give summary @ -No Was smoking cessation discussed for >3mins.? @ -I discussed smoking cessation for greater than 3 minutes. The risk of smoking were discussed with the patient including but not limited to risks of cancer, stroke, coronary artery disease and COPD. Also discussed with patient were multiple methods of quitting smoking. Lastly we discussed the financial cost of smoking. Was critical care preformed (if so, how long)? @ -No Were there social determinants of health that impacted care today? How? (Homelessness, low income, unemployed, alcoholism, drug addiction, tr ansportation, low edu. Level, literacy, decrease access to med. care, long-term, rehab)? @ -No Was there de-escalation of care discussed even if they declined (Discuss DNR or withdrawal of care, Hospice)? DNR status @ -No What co-morbidities impacted this encounter? (DM, HTN, Smoking, COPD, CAD, Cancer, CVA, ARF, Chemo, Hep., AIDS, mental health diagnosis, sleep apnea, morbid obesity)? @ -None Was patient admitted / discharged? Hospital course, mention meds given and route, prescriptions, significant lab abnormalities, going to OR and other pertinent info. @ -Discharge. Patient is a 37-year-old male presented to ER with chief complaint of diarrhea. History and physical exam completed. Vitals stable. Patient no signs of acute distress and nontoxic-appearing. No focal abdominal tenderness on exam. Labs obtained unremarkable. Patient received 1 L of IV fluids and Imodium while in the ER. Upon reevaluation, patient states he was feeling fine and has not had any repeat episodes of diarrhea. Results discussed with patient, all questions answered. I advised [id number] Imodium for diarrhea control. Return parameters discussed. Patient discharged stable condition follow-up PCP. Patient expressed understanding and agreement with care plan. Case discussed with ED attending, Dr. Ortega.] Undiagnosed new problem with uncertain prognosis? @ -No Drug Therapy requiring intensive monitoring for toxicity (Heparin, Nitro, Insulin, Cardizem)? @ -No Were any procedures done? @ -No Diagnosis/symptom? @ -Diarrhea Acute, or Chronic, or Acute on Chronic? @-Acute Uncomplicated (without systemic symptoms) or Complicated (systemic symptoms)? @ -Uncomplicated Side effects of treatment? @ -No Exacerbation, Progression, or Severe Exacerbation? @ -No Poses a threat to life or bodily function? How? (Chest pain, [place], [place], pneumonia, PE, COPD, DKA, ARF, appy, cholecystitis, CVA, Diverticulitis, Homicidal, Suicidal, threat to staff... and all critical care pts) @ -No - Lab Data Result diagrams: 09/10/23 12:49 09/10/23 12:49 Lab Results 09/10/23 09/10/23 09/10/23 Range/Units 12:49 12:49 12:49 WBC 8.6 (3.8-10.6) k/uL RBC 5.88 (4.30-5.90) m/uL Hgb 18.2 H (13.0-17.5) gm/dL Hct 52.7 (39.0-53.0) % MCV 89.6 (80.0-100.0) fL MCH 30.9 (25.0-35.0) pg MCHC 34.5 (31.0-37.0) g/dL RDW 12.4 (11.5-15.5) % Plt Count 262 (150-450) k/uL MPV 8.4 Neutrophils % 69 % Lymphocytes % 22 % Monocytes % 5 % Eosinophils % 3 % Basophils % 0 % Neutrophils # 5.9 (1.3-7.7) k/uL Lymphocytes # 1.9 (1.0-4.8) k/uL Monocytes # 0.4 (0-1.0) k/uL Eosinophils # 0.2 (0-0.7) k/uL Basophils # 0.0 (0-0.2) k/uL Sodium 141 (137-145) mmol/L Potassium 4.4 (3.5-5.1) mmol/L Chloride 108 H (98-107) mmol/L Carbon Dioxide 22 (22-30) mmol/L Anion Gap 11 mmol/L BUN 20 (9-20) mg/dL Creatinine 1.10 (0.66-1.25) mg/dL Est GFR (CKD-EPI)AfAm >90 (>60 ml/min/1.73 sqM) Est GFR (CKD-EPI)NonAf 85 (>60 ml/min/1.73 sqM) Glucose 88 (74-99) mg/dL Plasma Lactic Acid Сергей 0.8 (0.7-2.0) mmol/L Calcium 9.9 (8.4-10.2) mg/dL Total Bilirubin 1.8 H (0.2-1.3) mg/dL AST 25 (17-59) U/L ALT 17 (4-49) U/L Alkaline Phosphatase 51 (38-126) U/L Total Protein 8.8 H (6.3-8.2) g/dL Albumin 5.3 H (3.5-5.0) g/dL Amylase (30-110) U/L Lipase (23-300) U/L /25/24 Range/Units 14:25 WBC (3.8-10.6) k/uL RBC (4.30-5.90) m/uL Hgb (13.0-17.5) gm/dL Hct (39.0-53.0) % MCV (80.0-100.0) fL MCH (25.0-35.0) pg MCHC (31.0-37.0) g/dL RDW (11.5-15.5) % Plt Count (150-450) k/uL MPV Neutrophils % % Lymphocytes % % Monocytes % % Eosinophils % % Basophils % % Neutrophils # (1.3-7.7) k/uL Lymphocytes # (1.0-4.8) k/uL Monocytes # (0-1.0) k/uL Eosinophils # (0-0.7) k/uL Basophils # (0-0.2) k/uL Sodium (137-145) mmol/L Potassium (3.5-5.1) mmol/L Chloride (98-107) mmol/L Carbon Dioxide (22-30) mmol/L Anion Gap mmol/L BUN (9-20) mg/dL Creatinine (0.66-1.25) mg/dL Est GFR (CKD-EPI)AfAm (>60 ml/min/1.73 sqM) Est GFR (CKD-EPI)NonAf (>60 ml/min/1.73 sqM) Glucose (74-99) mg/dL Plasma Lactic Acid Сергей (0.7-2.0) mmol/L Calcium (8.4-10.2) mg/dL Total Bilirubin (0.2-1.3) mg/dL AST (17-59) U/L ALT (4-49) U/L Alkaline Phosphatase (38-126) U/L Total Protein (6.3-8.2) g/dL Albumin (3.5-5.0) g/dL Amylase 59 (30-110) U/L Lipase 72 (23-300) U/L Disposition Clinical Impression: Diarrhea Disposition: HOME SELF-CARE Condition: Stable Instructions (If sedation given, give patient instructions): Acute Diarrhea (ED) Additional Instructions: Please follow-up with PCP. Return to ER for any new or worsening symptoms. Prescriptions: Loperamide HCl [Imodium A-D] 2 mg PO Q4-6H #10 tablet Is patient prescribed a controlled substance at d/c from ED?: No Referrals: Vijay Maldonado MD [Primary Care Provider] - 1-2 days Time of Disposition: 15:18
[2023-09-10 12:11] VITALS: TEMP 98.1
[2023-09-10 14:04] LABS: Basophils % (A) 0 %; Eosinophils # (A) 0.2 k/uL (0-0.7); Eosinophils % (A) 3 %; HCT 52.7 % (39.0-53.0); HGB 18.2 gm/dL (13.0-17.5); Lymphocytes # (A) 1.9 k/uL (1.0-4.8); Lymphocytes % (A) 22 %; MCH 30.9 pg (25.0-35.0); MCHC 34.5 g/dL (31.0-37.0); MCV 89.6 fL (80.0-100.0); Mean Platelet Volume 8.4; Monocytes # (A) 0.4 k/uL (0-1.0); Monocytes % (A) 5 %; Neutrophils # (A) 5.9 k/uL (1.3-7.7); Neutrophils % (A) 69 %; Platelet Count 262 k/uL (150-450); RBC 5.88 m/uL (4.30-5.90); RDW 12.4 % (11.5-15.5); WBC 8.6 k/uL (3.8-10.6)
[2023-09-10 14:15] LABS: ALT 17 U/L (4-49); AST 25 U/L (17-59); African American GFR (CKD) >90 (>60 ml/min/1.73 sqM); Albumin 5.3 g/dL (3.5-5.0); Alkaline Phosphatase 51 U/L (38-126); Anion Gap 11 mmol/L; Blood Urea Nitrogen 20 mg/dL (9-20); Calcium 9.9 mg/dL (8.4-10.2); Carbon Dioxide 22 mmol/L (22-30); Chloride 108 mmol/L (98-107); Glucose 88 mg/dL (74-99); Non-African American GFR(CKD) 85 (>60 ml/min/1.73 sqM); Potassium 4.4 mmol/L (3.5-5.1); Sodium 141 mmol/L (137-145); Total Bilirubin 1.8 mg/dL (0.2-1.3); Total Protein 8.8 g/dL (6.3-8.2)
[2023-09-10 14:54] LABS: Amylase 59 U/L (30-110); Lipase 72 U/L (23-300)
[2023-09-10] MEDS: SODIUM CHLORIDE 0.9% 1,000 ML IV STA (14:55)
[2023-09-10] MEDS: LOPERAMIDE 2 MG CAP PO STA (14:55)
[2023-09-10 16:53] VITALS: BP 112/79; PULSE 74; RESP 18
== END 2023-09-10 16:30 | disposition home or self-care (01) ==
LOC: EC 11:31
DX: R19.7 Diarrhea, unspecified (principal); F17.290 Nicotine dependence, other tobacco product, uncomplicated; Z88.5 Allergy status to narcotic agent
CPT/HCPCS: 36415; 80053; 82150; 83605; 83690; 85025; 96360; 99284; 99406

== ENCOUNTER 2023-09-18 11:39 | Emergency (ER) | payer BC ==
--- NOTE | 2023-09-18 12:16 | ED ---
General Adult HPI - General Chief complaint: Nausea/Vomiting/Diarrhea Stated complaint: Vomiting Time Seen by Provider: 09/18/23 11:48 Source: patient, RN notes reviewed Mode of arrival: ambulatory Limitations: no limitations - History of Present Illness Initial comments: 38-year-old male presents to the emergency department with chief complaint with chief complaints of nausea vomiting abdominal discomfort. Patient states he was seen here recently and was treated for diarrhea. He states that resolved but states that he has intermittent vomiting states that nausea meds have not been helping. He denies any localized pain currently states that usually happens after he eats he has not eaten recently. Patient denies any dysuria no rectal bleeding no hematemesis - Related Data Home Medications Medication Instructions Recorded Confirmed Tirzepatide [Zepbound] 2.5 mg SQ DAILY 08/24/23 08/24/23 Previous Rx's Medication Instructions Recorded Ondansetron Odt [Zofran Odt] 4 mg PO Q8HR PRN #10 tab 06/15/23 Loperamide HCl [Imodium A-D] 2 mg PO Q4-6H #10 tablet 09/10/23 Famotidine [Pepcid] 20 mg PO BID #28 tablet 09/18/23 Metoclopramide [Reglan] 10 mg PO TID PRN #15 tab 09/18/23 Allergies Allergy/AdvReac Type Severity Reaction Status Date / Time propoxyphene napsylate AdvReac Confusion/Passed Verified 09/10/23 11:36 [From Maciel] Out Review of Systems ROS Statement: Those systems with pertinent positive or pertinent negative responses have been documented in the HPI. ROS Other: All systems not noted in ROS Statement are negative. Past Medical History Past Medical History: Asthma Additional Past Medical History / Comment(s): sinus problems History of Any Multi-Drug Resistant Organisms: None Reported Past Surgical History: Orthopedic Surgery Additional Past Surgical History / Comment(s): oral surgery, colonscopy Past Psychological History: Anxiety, PTSD Smoking Status: Vaper Past Alcohol Use History: Rare Past Drug Use History: Marijuana General Exam Limitations: no limitations General appearance: alert, in no apparent distress Head exam: Present: atraumatic, normocephalic, normal inspection Respiratory exam: Present: normal lung sounds bilaterally. Absent: respiratory distress, wheezes, rales, rhonchi, stridor Cardiovascular Exam: Present: regular rate, normal rhythm, normal heart sounds. Absent: systolic murmur, diastolic murmur, rubs, gallop, clicks GI/Abdominal exam: Present: soft, normal bowel sounds. Absent: distended, tenderness, guarding, rebound, rigid Back exam: Absent: CVA tenderness (R), CVA tenderness (L) Neurological exam: Present: alert Course Vital Signs 09/18/23 11:41 Temperature 97.3 F L Pulse Rate 99 Respiratory 16 Rate Blood Pressure 124/86 O2 Sat by Pulse 98 Oximetry Medical Decision Making - Medical Decision Making Was pt. sent in by a medical professional or institution (, PA, NIB FINISHER, urgent care, hospital, or halfway...) When possible be specific @ -No Did you speak to anyone other than the patient for history (EMS, parent, family, police, friend...)? What history was obtained from this source @ -No Did you review nursing and triage notes (agree or disagree)? Why? @ -I reviewed and agree with nursing and triage notes Were old charts reviewed (outside hosp., previous admission, EMS record, old EKG, old radiological studies, urgent care reports/EKG's, halfway records)? Report findings @ -[Reviewed recent laboratory studies including comp, CBC Differential Diagnosis (chest pain, altered mental status, abdominal pain women, abdominal pain men, vaginal bleeding, weakness, fever, dyspnea, syncope, headac he, dizziness, GI bleed, back pain, seizure, CVA, palpatations, mental health, musculoskeletal)? @ -Differential Abdominal Pain Men: Appendicitis, cholecystitis, diverticulosis, ischemic bowel, pancreatitis, hepatitis, UTI, gastroenteritis, AAA, incarcerated hernia, bowel obstruction, constipation, inflammatory bowel, hepatitis, peptic ulcer disease, splenic infarction, perforated viscus, testicular torsion, this is not meant to be an all-inclusive list EKG interpreted by me (3pts min.). @ -None X-rays interpreted by me (1pt min.). @ -X-ray KUB shows no acute intra-abdominal process CT interpreted by me (1pt min.). @ -None done U/S interpreted by me (1pt. min.). @ -Ultrasound gallbladder was negative for acute cholecystitis, cholelithiasis What testing was considered but not performed or refused? (CT, X-rays, U/S, labs)? Why? @ -None What meds were considered but not given or refused? Why? @ -None Did you discuss the management of the patient with other professionals (professionals i.e. , PA, NIB FINISHER, lab, RT, psych nurse, community mental health social worker, grinder set up operator thread tool, teacher, landcare officer, bottle caser)? Give summary @ -No Was smoking cessation discussed for >3mins.? @ -No Was critical care preformed (if so, how long)? @ -No Were there social determinants of health that impacted care today? How? (Ho melessness, low income, unemployed, alcoholism, drug addiction, transportation, low edu. Level, literacy, decrease access to med. care, usp, rehab)? @ -No Was there de-escalation of care discussed even if they declined (Discuss DNR or withdrawal of care, Hospice)? DNR status @ -No What co-morbidities impacted this encounter? (DM, HTN, Smoking, COPD, CAD, Cancer, CVA, ARF, Chemo, Hep., AIDS, mental health diagnosis, sleep apnea, morbid obesity)? @ -None Was patient admitted / discharged? Hospital course, mention meds given and route, prescriptions, significant lab abnormalities, going to OR and other pertinent info. @ -Discharge patient states he feels greatly improved. Laboratory studies e ssentially unremarkable patient updated on findings to be discharged with Adina Regphilip return parameters discussed. Undiagnosed new problem with uncertain prognosis? @ -No Drug Therapy requiring intensive monitoring for toxicity (Heparin, Nitro, Insulin, Cardizem)? @ -No Were any procedures done? @ -No Diagnosis/symptom? @ -Nausea vomiting, GERD Acute, or Chronic, or Acute on Chronic? @ -Acute Uncomplicated (without systemic symptoms) or Complicated (systemic symptoms)? @ -Uncomplicated Side effects of treatment? @ -No Exacerbation, Progression, or Severe Exacerbation? @ -No Poses a threat to life or bodily function? How? (Chest pain, [place], [place], pneumonia, PE, COPD, DKA, ARF, appy, cholecystitis, CVA, Diverticulitis, Homicidal, Suicidal, threat to staff... and all critical care pts) @ -No - Lab Data Result diagrams: 09/18/23 12:27 09/18/23 12:27 Lab Results 09/18/23 09/18/23 Range/Units 12:27 12:27 WBC 5.0 (3.8-10.6) k/uL RBC 5.09 (4.30-5.90) m/uL Hgb 15.5 (13.0-17.5) gm/dL Hct 46.0 (39.0-53.0) % MCV 90.3 (80.0-100.0) fL MCH 30.5 (25.0-35.0) pg MCHC 33.8 (31.0-37.0) g/dL RDW 12.4 (11.5-15.5) % Plt Count 196 (150-450) k/uL MPV 8.2 Neutrophils % 68 % Lymphocytes % 24 % Monocytes % 5 % Eosinophils % 2 % Basophils % 1 % Neutrophils # 3.4 (1.3-7.7) k/uL Lymphocytes # 1.2 (1.0-4.8) k/uL Monocytes # 0.2 (0-1.0) k/uL Eosinophils # 0.1 (0-0.7) k/uL Basophils # 0.0 (0-0.2) k/uL Sodium 138 (137-145) mmol/L Potassium 4.0 (3.5-5.1) mmol/L Chloride 105 (98-107) mmol/L Carbon Dioxide 23 (22-30) mmol/L Anion Gap 10 mmol/L BUN 17 (9-20) mg/dL Creatinine 0.88 (0.66-1.25) mg/dL Est GFR (CKD-EPI)AfAm >90 (>60 ml/min/1.73 sqM) Est GFR (CKD-EPI)NonAf >90 (>60 ml/min/1.73 sqM) Glucose 93 (74-99) mg/dL Calcium 9.4 (8.4-10.2) mg/dL Magnesium 1.9 (1.6-2.3) mg/dL Total Bilirubin 2.0 H (0.2-1.3) mg/dL AST 25 (17-59) U/L ALT 21 (4-49) U/L Alkaline Phosphatase 49 (38-126) U/L Total Protein 7.2 (6.3-8.2) g/dL Albumin 4.5 (3.5-5.0) g/dL Lipase 51 (23-300) U/L TSH 0.769 (0.465-4.680) mIU/L Disposition Clinical Impression: Nausea & vomiting Disposition: HOME SELF-CARE Condition: Stable Instructions (If sedation given, give patient instructions): Acute Nausea and Vomiting (ED) Additional Instructions: Please return to the Emergency Department if symptoms worsen or any other concerns. Prescriptions: Famotidine [Pepcid] 20 mg PO BID #28 tablet Metoclopramide [Reglan] 10 mg PO TID PRN #15 tab PRN Reason: Nausea Is patient prescribed a controlled substance at d/c from ED?: No Referrals: Vijay Maldonado MD [Primary Care Provider] - 1-2 days Time of Disposition: 13:46
[2023-09-18] MEDS: FAMOTIDINE 20 MG/2 ML VIAL IV STA (12:20)
[2023-09-18] MEDS: METOCLOPRAMIDE 5 MG/ML 2 ML VIAL IVP STA (12:21)
[2023-09-18] MEDS: SODIUM CHLORIDE 0.9% 2,000 ML IV STA (12:24)
[2023-09-18 12:44] LABS: Basophils % (A) 1 %; Eosinophils # (A) 0.1 k/uL (0-0.7); Eosinophils % (A) 2 %; HGB 15.5 gm/dL (13.0-17.5); Lymphocytes # (A) 1.2 k/uL (1.0-4.8); Lymphocytes % (A) 24 %; MCH 30.5 pg (25.0-35.0); MCHC 33.8 g/dL (31.0-37.0); MCV 90.3 fL (80.0-100.0); Mean Platelet Volume 8.2; Monocytes # (A) 0.2 k/uL (0-1.0); Monocytes % (A) 5 %; Neutrophils # (A) 3.4 k/uL (1.3-7.7); Neutrophils % (A) 68 %; Platelet Count 196 k/uL (150-450); RBC 5.09 m/uL (4.30-5.90); RDW 12.4 % (11.5-15.5)
[2023-09-18 12:55] LABS: ALT 21 U/L (4-49); AST 25 U/L (17-59); African American GFR (CKD) >90 (>60 ml/min/1.73 sqM); Albumin 4.5 g/dL (3.5-5.0); Alkaline Phosphatase 49 U/L (38-126); Anion Gap 10 mmol/L; Blood Urea Nitrogen 17 mg/dL (9-20); Calcium 9.4 mg/dL (8.4-10.2); Carbon Dioxide 23 mmol/L (22-30); Chloride 105 mmol/L (98-107); Glucose 93 mg/dL (74-99); Lipase 51 U/L (23-300); Magnesium 1.9 mg/dL (1.6-2.3); Non-African American GFR(CKD) >90 (>60 ml/min/1.73 sqM); Sodium 138 mmol/L (137-145); Total Protein 7.2 g/dL (6.3-8.2)
--- NOTE | 2023-09-18 13:10 | XR ---
EXAMINATION TYPE: XR KUB DATE OF EXAM: 09/18/2023 12:36 PM CLINICAL INDICATION:Male, 38 years old with history of pain; COMPARISON: None. TECHNIQUE: One radiographic view of the abdomen was obtained. FINDINGS: The bowel gas pattern is nonspecific without dilated loops of small or large bowel. There i s no evidence for organomegaly or pneumoperitoneum. The osseous structures are intact. No abnormal calcifications are present. Fecal material and gas are demonstrated throughout the colon and rectum. Mild degeneration changes throughout the spine. IMPRESSION: Nonspecific bowel gas pattern without radiographic evidence for acute process.
--- NOTE | 2023-09-18 13:44 | US ---
EXAMINATION TYPE: US gallbladder DATE OF EXAM: 09/18/2023 COMPARISON: NONE CLINICAL INDICATION: Male, 38 years old with history of pain; Vomiting TECHNIQUE: Multiple sonographic images of the right upper quadrant are obtained. FINDINGS: EXAM MEASUREMENTS: Liver Length: 17.5 cm Gallbladder Wall: 0.2 cm CBD: 0.4 cm Right Kidney: 12.2 x 5.2 x 4.9 cm Pancreas: Tail obscured by overlying bowel gas Liver: wnl Gallbladder: no evidence of stones Evidence for sonographic Maynard's sign: no CBD: wnl Right Kidney: no evidence of hydronephrosis or mass IMPRESSION: No evidence for acute process.
[2023-09-18 14:22] VITALS: BP 106/66; PULSE 77; RESP 18; TEMP 98.1
== END 2023-09-18 13:59 | disposition home or self-care (01) ==
LOC: EC 11:39
DX: K21.9 Gastro-esophageal reflux disease without esophagitis (principal); F17.290 Nicotine dependence, other tobacco product, uncomplicated; F12.90 Cannabis use, unspecified, uncomplicated; Z88.8 Allergy status to other drugs, medicaments and biological substances
CPT/HCPCS: 36415; 80053; 84443; 83690; 83735; 85025; 74018; 76705; 99285; 96374; 96375; 96361; J2765; J3490

== ENCOUNTER 2024-02-29 18:09 | Emergency (ER) | payer BC ==
[2024-02-29 18:23] VITALS: TEMP 98.3
--- NOTE | 2024-02-29 19:18 | XR ---
EXAMINATION TYPE: XR hand complete RT DATE OF EXAM: 02/29/2024 7:00 PM CLINICAL INDICATION:Male, 38 years old with history of right hand pain and swelling of the fifth digi t. Patient reportedly punched a computer. COMPARISON: Right hand radiograph 03/08/2015. TECHNIQUE: XR hand complete RT Frontal, lateral and oblique views were obtained. FINDINGS: There is an acute comminuted fracture involving the head of the fifth metacarpal bone with no signifi cant displacement. No additional acute fractures are appreciated. There is generalized soft tissue sw elling over the right fifth digit and ulnar aspect of the hand. Surgical hardware is redemonstrated involving the mid shafts of the fourth and fifth metacarpal bones . Remote deformity of the base of the fifth metacarpal. No radiopaque foreign bodies. No dislocations. IMPRESSION: 1. Acute nondisplaced comminuted fracture of the fifth digit metacarpal head with associated mild ove rlying soft tissue swelling. 2. Postsurgical changes of the fourth and fifth digits.
--- NOTE | 2024-02-29 19:21 | ED ---
Upper Extremity HPI - General Chief Complaint: Extremity Injury, Upper Stated Complaint: R hand injury Time Seen by Provider: 02/29/24 18:54 Source: patient, RN notes reviewed, old records reviewed Mode of arrival: ambulatory Limitations: no limitations - History of Present Illness Initial Comments: This is a 38-year-old male to ER with right hand injury history of right hand fracture and prior surgery, patient punched a computer monitor prior to arrival, patient is complaining of right hand pain no other injury noted MD Complaint: Injury to:: right, wrist, hand -: hour(s) Other Extremity Injury: Hand: Right, Wrist: Right Handedness: right Place: home Severity scale (1-10): 10 Improves With: none Worsens With: none Context: direct blow Associated Symptoms: denies other symptoms Treatments Prior to Arrival: splint - Related Data Home Medications Medication Instructions Recorded Confirmed Tirzepatide [Zepbound] 2.5 mg SQ DAILY 08/24/23 08/24/23 Previous Rx's Medication Instructions Recorded Ondansetron Odt [Zofran Odt] 4 mg PO Q8HR PRN #10 tab 06/15/23 Loperamide HCl [Imodium A-D] 2 mg PO Q4-6H #10 tablet 09/10/23 Famotidine [Pepcid] 20 mg PO BID #28 tablet 09/18/23 Metoclopramide [Reglan] 10 mg PO TID PRN #15 tab 09/18/23 Allergies Allergy/AdvReac Type Severity Reaction Status Date / Time propoxyphene napsylate AdvReac Confusion/Passed Verified 09/10/23 11:36 [From Maciel] Out Review of Systems ROS Statement: Those systems with pertinent positive or pertinent negative responses have been documented in the HPI. ROS Other: All systems not noted in ROS Statement are negative. Past Medical History Past Medical History: Asthma Additional Past Medical History / Comment(s): sinus problems History of Any Multi-Drug Resistant Organisms: None Reported Past Surgical History: Orthopedic Surgery Additional Past Surgical History / Comment(s): oral surgery, colonscopy Past Psychological History: Anxiety, PTSD Smoking Status: Vaper Past Alcohol Use History: Rare Past Drug Use History: Marijuana General Exam Limitations: no limitations General appearance: alert, in no apparent distress Head exam: Present: atraumatic, normocephalic, normal inspection Eye exam: Present: normal appearance, PERRL, EOMI. Absent: scleral icterus, conjunctival injection, periorbital swelling ENT exam: Present: normal exam, mucous membranes moist Neck exam: Present: normal inspection. Absent: tenderness, meningismus, lymphadenopathy Respiratory exam: Present: normal lung sounds bilaterally. Absent: respiratory distress, wheezes, rales, rhonchi, stridor Cardiovascular Exam: Present: regular rate, normal rhythm, normal heart sounds. Absent: systolic murmur, diastolic murmur, rubs, gallop, clicks GI/Abdominal exam: Present: soft, normal bowel sounds. Absent: distended, tenderness, guarding, rebound, rigid Extremities exam: Present: normal inspection, full ROM, normal capillary refill. Absent: tenderness, pedal edema, joint swelling, calf tenderness Back exam: Present: normal inspection Neurological exam: Present: alert, oriented X3, CN II-XII intact Psychiatric exam: Present: normal affect, normal mood Skin exam: Present: warm, dry, intact, normal color. Absent: rash Course Vital Signs 02/29/24 02/29/24 18:21 19:55 Temperature 98.3 F Pulse Rate 95 86 Respiratory 16 18 Rate Blood Pressure 130/72 123/75 O2 Sat by Pulse 98 99 Oximetry - Reevaluation(s) Reevaluation #1: 02/29/24 19:41 Medical records reviewed Reevaluation #2: 02/29/24 19:41 Patient's pain is unchanged Reevaluation #3: 02/29/24 19:41 Patient informed of results questions answered Reevaluation #4: Was pt. sent in by a medical professional or institution (, PA, MEDICAL ASSISTANT PRN, urgent care, hospital, or long term...) When possible be specific @ -no Did you speak to anyone other than the patient for history (EMS, parent, family, police, friend...)? What history was obtained from this source @ -no Did you review nursing and triage notes (agree or disagree)? Why? @ -agree Are old charts reviewed (outside hosp., previous admission, EMS record, old EKG, old radiological studies, urgent care reports/EKG's, long term records)? Report findings @ -yes Differential Diagnosis (chest pain, altered mental status, abdominal pain women, abdominal pain men, vaginal bleeding, weakness, fever, dyspnea, syncope, headache, dizziness, GI bleed, back pain, seizure, CVA, palpatations, mental health, musculoskeletal)? @ -prior EKG interpreted by me (3pts min.). @ -no X-rays interpreted by me (1pt min.). @ -yes positive for boxer's fracture tive for acute disease CT interpreted by me (1pt min.). @ -no U/S interpreted by me (1pt. min.). @ -no What testing was considered but not performed or refused? (CT, X-rays, U/S, labs)? Why? @ -none What meds were considered but not given or refused? Why? @ -none Did you discuss the management of the patient with other professionals (professionals i.e. , PA, MEDICAL ASSISTANT PRN, lab, RT, psych nurse, social media assistant, express clerk, teacher, weapons electrical engineering officer, family caseworker)? Give summary @ -no Was smoking cessation discussed for >3mins.? @ -no Was critical care preformed (if so, how long)? @ -no Were there social determinants of health that impacted care today? How? (Homelessness, low income, unemployed, alcoholism, drug addiction, transportation, low edu. Level, literacy, decrease access to med. care, fdc, rehab)? @ -none Was there de-escalation of care discussed even if they declined (Discuss DNR or withdrawal of care, Hospice)? DNR status @ -no What co-morbidities impacted this encounter? (DM, HTN, Smoking, COPD, CAD, Cancer, CVA, ARF, Chemo, Hep., AIDS, mental health diagnosis, sleep apnea, morbid obesity)? @ -none Was patient admitted / discharged? Hospital course, mention meds given and route, prescriptions, significant lab abnormalities, going to OR and other pertinent info. @ - 38 male to the ER for evaluation patient has right fifth metacarpal fracture boxer's fracture, patient does have prior surgery by Dr. Neal, patient will follow-up after placed in splint with orthopedic Discharge Undiagnosed new problem with uncertain prognosis? @ -no Drug Therapy requiring intensive monitoring for toxicity (Heparin, Nitro, Insulin, Cardizem)? @ -no Were any procedures done? @ -Yes splint placed Diagnosis/symptom? @ -Hand fracture right boxer's fracture Acute, or Chronic, or Acute on Chronic? @ -Acute Uncomplicated (without systemic symptoms) or Complicated (systemic symptoms)? @ -Complicated Side effects of treatment? @ -no Exacerbation, Progression, or Severe Exacerbation? @ -exacerbation Poses a threat to life or bodily function? How? (Chest pain, USA, [place], pneumonia, PE, COPD, DKA, ARF, appy, cholecystitis, CVA, Diverticulitis, Homicidal, Suicidal, threat to staff... and all critical care pts) @ -yes Procedures - Orthopedic Splinting/Casting Injury #1 Side: right Upper Extremity Immobilizer: ulnar gutter Medical Decision Making - Medical Decision Making 38 male to the ER for evaluation patient has right fifth metacarpal fracture boxer's fracture, patient does have prior surgery by Dr. Neal, patient will follow-up after placed in splint with orthopedic - Radiology Data Radiology results: report reviewed (X-ray positive for right hand fracture recurrent fracture), image reviewed Disposition Clinical Impression: Closed boxer's fracture, Fracture of fifth metacarpal bone, Right hand fracture Disposition: HOME SELF-CARE Condition: Good Instructions (If sedation given, give patient instructions): Hand Fracture (ED) Is patient prescribed a controlled substance at d/c from ED?: No Referrals: Neno Neff DO [Doctor of Osteopathic Medicine] - 1-2 days Time of Disposition: 19:20
[2024-02-29 20:00] VITALS: BP 123/75; PULSE 86; RESP 18
== END 2024-02-29 20:05 | disposition home or self-care (01) ==
LOC: EC 18:09
DX: W19.XXXA Unspecified fall, initial encounter
CPT/HCPCS: 29125; 99283